=== PATIENT | female | born 1960 | race Caucasian/White ===

== ENCOUNTER 2016-09-18 11:05 | Inpatient (IN) | payer OTHER ==
[~2016-09-18] VITALS: Ht 162.6 cm; Wt 54.4 kg
--- NOTE | 2016-09-18 11:10 | ED DYSPNEA/ASTHMA COMPLAINT ---
History of Present Illness General Chief Complaint: Dyspnea (COPD, CHF, Other) Stated Complaint: sob Source: patient, old records, EMS Exam Limitations: no limitations Vital Signs & Intake/Output Vital Signs & Intake/Output Vital Signs Date Time Temp Pulse Resp B/P Pulse O2 O2 Flow FiO2 Ox Delivery Rate 09/19 0817 93 Nasal 2.0L Cannula 09/19 0800 96 Nasal 2.0L Cannula 09/19 0622 97.6 91 20 120/78 97 Room Air 09/19 0051 80 09/19 0000 94 Nasal 2.0L Cannula 09/18 2252 98.1 113 22 122/80 94 Nasal Cannula 09/18 2039 Nasal 3.0L Cannula 09/18 1600 Nasal 3.0L Cannula 09/18 1454 95 Nasal 3.0L Cannula 09/18 1427 97.9 109 22 102/60 95 Nasal 3.0L Cannula 09/18 1307 98.0 109 20 106/59 97 Nasal 3.0L Cannula 09/18 1250 107 20 88 Room Air 09/18 1152 98 Aerosol Mask 09/18 1136 104 24 129/69 98 Aerosol Mask 09/18 1118 98 Aerosol 4.0L Mask 09/18 1105 98.9 103 34 152/72 93 Room Air ED Intake and Output 09/19 0000 09/18 1200 Intake Total 1260 0 Output Total Balance 1260 0 Intake, IV 20 Intake, Oral 1240 0 Patient 120 lb Weight Allergies Coded Allergies: Penicillins (CHILDHOOD ALLERGY 09/18/16) Reconcile Medications Albuterol Sulfate (Proair Hfa) 90 MCG HFA.AER.AD 2 PUF INH Q4-6 PRN PRN SHORTNESS OF BREATH (Reported) Fluticasone/Salmeterol (Advair 250-50 Diskus) 250 MCG-50 MCG/DOSE BLST.W.DEV 1 PUF INH BID BREATHING PROBLEMS (Reported) Tiotropium [place] (Spiriva) 18 MCG CAP.W.DEV 1 CAP INH DAILY BREATHING PROBLEMS (Reported) Triage Nurses Notes Reviewed? yes Onset: Abrupt Duration: day(s): (FEW), worse persistent since (THIS MORNING) Timing: multiple episodes today Severity: severe Activities at Onset: none Associated Symptoms: cough, chest pain, weakness HPI: This is a 56-year-old female with history of COPD who presents via EMS from home for chief complaint of respiratory distress. She states been sick for the past one week but yesterday suddenly got much worse. This morning she states she was able to get out of bed but then couldn't breathe. EMS found her tripoding using albuterol nebulizer treatment. On route she was given 2 additional albuterol treatments, 2 minute grams of magnesium as well as 125 slightly Medrol IV. Patient presents much improved per EMS. She denies any chest pain but states she has had some white sputum. No history of coronary disease or congestive heart failure in the past. She is still smoking 1-1/2 packs per day. She does not use any home oxygen therapy. Her supply chain intern is Dr. Godfrey. Patient found to be in moderate respiratory distress, tachypneic with bilateral wheezing. She is pursed lipped breathing. Past History Medical History Any Pertinent Medical History? see below for history Respiratory: COPD History of MRSA: No History of VRE: No History of CDIFF: No Influenza Vaccine: 03/04/12 Surgical History Surgical History: non-contributory Psychosocial History Who do you live with Patient/Self Services at Home None What is your primary language Moroccan Daily Tobacco Use Amount/Type: => 5 Cigarettes daily (1.5 PPD) ETOH Use: occasional use Illicit Drug Use: denies illicit drug use Family History Family History, If Any: MOTHER Family hx of lung cancer Hx Contributory? No Review of Systems Review of Systems Constitutional: Reports: chills, fever. EENTM: Reports: no symptoms. Respiratory: Reports: cough, short of breath, sputum production. Cardiovascular: Reports: chest pain. GI: Denies: abdominal pain. Genitourinary: Reports: no symptoms. Musculoskeletal: Reports: no symptoms. Skin: Reports: no symptoms. Neurological/Psychological: Reports: no symptoms. Hematologic/Endocrine: Denies: bruising, bleeding, polyuria, polydipsia. Immunologic/Allergic: Denies: splenectomy. All Other Systems: Reviewed and Negative Physical Exam Physical Exam General Appearance: alert, awake, anxious, cachetic, moderate distress, intoxicated, thin Head: atraumatic, normal appearance Eyes: Bilateral: normal appearance, PERRL, EOMI. Ears, Nose, Throat: normal pharynx, hearing grossly normal Neck: normal inspection, supple, full range of motion Respiratory: accessory muscle use, wheezing, respiratory distress Cardiovascular: tachycardia Peripheral Pulses: 2+ radial (R), 2+ radial (L) Gastrointestinal: soft, non-tender Neurologic/Psych: awake, alert, oriented x 3 Skin: intact, normal color, warm/dry Core Measures ACS in differential dx? No Severe Sepsis Present: No Septic Shock Present: No Progress Differential Diagnosis: COPD, pulmonary embolism, pneumothorax Plan of Care: Orders Procedure Date/time Status XRY-CHEST XRAY, PA AND LATERAL 09/19 0800 Active EKG 09/19 0800 Active CBC WITHOUT DIFFERENTIAL 09/19 0500 Active BASIC ELECTROLYTES PLUS BUN&CR 09/19 0500 Complete Regular Diet 09/18 D Active RT: Evaluation 09/18 2039 Active THERAPIST ORDERS 09/18 2000 Complete RAPID VIRAL INFLUENZA A 09/18 1900 Complete OXYGEN SETUP (GEN) 09/18 1600 Complete Pathway - chart 09/18 1521 Active Vital Signs 09/18 1453 Active Teach/Educate 09/18 1453 Active Pain Treatment and Response 09/18 1453 Active Nutritional Intake, Monitor 09/18 1453 Active Isolation 09/18 1453 Active Intake & Output 09/18 1453 Active Patient Care Conference 09/18 1453 Active Activity/Ambulation 09/18 1453 Active Weight 09/18 1334 Complete Pathway - chart 09/18 1316 Active Code Status 09/18 1316 Active Patient Data 09/18 1311 Active Admit to inpatient 09/18 1300 Active Vital Signs 09/18 1300 Complete Code Status 09/18 1300 Complete ARTERIAL BLOOD GAS (GEN) 09/18 1209 Complete B-TYPE NATRIURETIC PEP (BNP) 09/18 1155 Complete Intake & Output 09/18 1147 Active Telemetry/Strawhat Inspector And Packer 09/18 1109 Complete PARTIAL THROMBOPLASTIN TIME 09/18 1109 Complete PROTHROMBIN TIME 09/18 1109 Complete RT ED ORDERS 09/18 1108 Complete LOWER RESPIRATORY CULTURE 09/18 1108 Active BLOOD CULTURE 09/18 1108 Active TROPONIN LEVEL 09/18 1108 Complete LACTIC ACID 09/18 1108 Complete COMPREHENSIVE METABOLIC PANEL 09/18 1108 Complete CBC WITHOUT DIFFERENTIAL 09/18 1108 Complete EKG 09/18 1108 Active OXYGEN SETUP CHG 09/18 UNK Complete AEROSOL CHG 09/18 UNK Complete OXYGEN 09/18 UNK Complete OXYGEN TRANSPORT 09/18 UNK Complete TRC EVALUATION (GEN) 09/18 UNK Complete THERAPIST ORDERS 09/18 UNK Complete House Staff 09/18 UNK Active VTE Mechanical Prophylaxis 09/18 UNK Active Vital Signs 09/18 UNK Active Current Medications Sig/Vicki Start time Last Medication Dose Stop Time Status Admin Prednisone 60 MG DAILY 09/19 1000 CAN Acetaminophen 650 MG Q6P PRN 09/18 1530 AC (Tylenol) Albuterol Sulfate 2 PUF Q4-6 PRN PRN 09/18 1430 AC (Ventolin) Laboratory Tests 09/19/16 0705: Anion Gap 9, Estimated GFR > 60, BUN/Creatinine Ratio 21.7, CBC w Diff Pending, WBC Pending, RBC Pending, Hgb Pending, Hct Pending, MCV Pending, MCH Pending, RDW Pending, Plt Count Pending, MPV Pending, Gran % Pending, Lymphocytes % Pending, Monocytes % Pending, Eosinophils % Pending, Basophils % Pending, Absolute Granulocytes Pending, Absolute Lymphocytes Pending, Absolute Monocytes Pending, Absolute Eosinophils Pending, Absolute Basophils Pending, PUBS MCHC Pending 09/18/16 1408: Lactic Acid Cancelled 09/18/16 1200: pH 7.34 L, pCO2 55 H, pO2 213 H, HCO3 30 H, ABG O2 Sat (Measured) 99.0, P-50 (Temp Corrected) YES, Carboxyhemoglobin 6.8 *H, O2 Concentration % 7L, Temperature 96.4 L, O2 Delivery Method NEBULIZER, Phlebotomy Draw Site LEFT RADIAL 09/18/16 1155: Anion Gap 13, Estimated GFR > 60, BUN/Creatinine Ratio 15.0, Glucose 167 H, Lactic Acid 1.7, Calcium 9.6, Total Bilirubin 0.4, AST 35, ALT 39, Alkaline Phosphatase 58, Troponin I 0.01, Bse-O-Nczfutepffe Pept 139 H, Total Protein 7.1, Albumin 4.3, Globulin 2.8, Albumin/Globulin Ratio 1.5, PT 9.7, INR 0.92, APTT 31, CBC w Diff NO MAN DIFF REQ, RBC 4.67, MCV 96.9, MCH 33.1 H, RDW 14.6 H, MPV 8.6, Gran % 77.4 H, Lymphocytes % 16.2 L, Monocytes % 4.3, Eosinophils % 1.9, Basophils % 0.2, Absolute Granulocytes 8.8 H, Absolute Lymphocytes 1.8, Absolute Monocytes 0.5, Absolute Eosinophils 0.2, Absolute Basophils 0, PUBS MCHC 34.2 09/18/16 1109: Zuu-Q-Gdqjfgdwngu Pept Cancelled Microbiology 09/18 2114 NASOPHARYN: Influenza Virus A & B Rapid Smear - COMP 09/18 1425 LOWER RESP: Respiratory Culture - RES 09/18 1425 LOWER RESP: Gram Stain - RES 09/18 1205 BLOOD: Blood Culture - RECD 09/18 1155 BLOOD: Blood Culture - RECD Diagnostic Imaging: Viewed by Me: Radiology Read. Discussed w/RAD: Radiology Read. Initial ED EKG: LBBB, ENLARGED P WAVES Rhythm Strip: sinus tachycardia Comments: PATIENT: KENRICK LYN PRESENT AGE: 56 PATIENT ACCOUNT NO: [id number] : 58 LOCATION: [facility] ORDERING PHYSICIAN: MATILDE MCFARLAND MD SERVICE DATE: 09/18/16 EXAM TYPE: RAD - XRY-PORTABLE CHEST XRAY EXAMINATION: XR PORTABLE CHEST CLINICAL INFORMATION: Evaluate for pneumonia. Respiratory distress. COMPARISON: Chest x-ray most recent prior dated 08/18/2013 TECHNIQUE: Portable AP view of the chest was obtained. FINDINGS: Cardia mediastinal silhouette is within normal limits. Rounded nodular opacity left midlung represents a stable finding measuring approximately 1.8 cm. Minor interval increase in the patchy opacity right lateral base. Prominent bilateral nipple shadows noted again. IMPRESSION: 1. Stable lung nodule left midlung. 2. Subtle prominence patchy opacity right lateral base. Findings may represent evolving infiltrate or atelectasis. Repeat chest x-ray after treatment recommended. DICTATED BY: FRANK HEMPHILL MD DATE/TIME DICTATED:09/18/161158 LIGHTER CAPTAIN:DORA DATE/TIME TRANSCRIBED:09/18/161158 CONFIDENTIAL, DO NOT COPY WITHOUT APPROPRIATE AUTHORIZATION. <Electronically signed in Other Vendor System> SIGNED BY: FRANK HEMPHILL MD 09/18/16 120 Departure Departure Time of Disposition: 1305 Disposition: STILL A PATIENT Condition: Stable Clinical Impression Primary Impression: Obstructive chronic bronchitis with exacerbation Secondary Impressions: Pneumonia, Respiratory distress Referrals: KHARI HERNANDEZ (PCP/Family) Departure Forms: Customer Survey General Discharge Information Admission Note Spoke With: LIZ MD,KANWARDEEP S. Documentation of Exam: Documentation of any treatments & extenuating circumstances including Concerns Regarding Discharge (functional status, medication knowledge or non-compliance, living conditions, etc.) that warrant an admission rather than observation: [TRC /NEBS, IV SOLUMEDROL, IV ABX, F/U CULTURES, PULMONARY CONSULTATION, MONITOR I/O] Critical Care Note Critical Care Note Critical Care Time: 75-104 min
--- NOTE | 2016-09-18 11:15 | NUR ---
PT BIBA FOR SOB X 45 MINUTES. PER EMS PT CALLED WHEN SHE FELT EXTREMELY SOB. PT STATES SHE HAS BEEN SOB ON AND OFF FOR A WEEK BUT TODAY IT WAS VERY SEVERE. DELIVERY AIDE STATES ON ARRIVAL PT HAD VERY LABORED BREATHING WITH RR OF 40 A MINUTE AND A SAT OF 85-89% ON A NRB. 18G IV WAS ESTABLISHED BY EMS ENROUTE. PT WAS GIVEN 2 ALBUTEROL TREATMENTS, 125 MG OF IV SOLUMEDROL, AND 2G OF IV MAGNESIUM. PT REPORTS RELIEF AFTER TX BUT STILL PRESENTS WITH LABORED BREATHING ON ARRIVAL.
--- NOTE | 2016-09-18 11:47 | NUR ---
PT STATES THAT SHE FEELS BETTER. CONTINUOUS NEB TX IN PROCESS
--- NOTE | 2016-09-18 12:05 | RADIOLOGY REPORT ---
EXAMINATION: XR PORTABLE CHEST CLINICAL INFORMATION: Evaluate for pneumonia. Respiratory distress. COMPARISON: Chest x-ray most recent prior dated 08/18/2013 TECHNIQUE: Portable AP view of the chest was obtained. FINDINGS: Cardia mediastinal silhouette is within normal limits. Rounded nodular opacity left midlung represents a stable finding measuring approximately 1.8 cm. Minor interval increase in the patchy opacity right lateral base. Prominent bilateral nipple shadows noted again. IMPRESSION: 1. Stable lung nodule left midlung. 2. Subtle prominence patchy opacity right lateral base. Findings may represent evolving infiltrate or atelectasis. Repeat chest x-ray after treatment recommended.
[2016-09-18 12:15] LABS: ABSOLUTE BASOPHIL COUNT 0 /CUMM (0.0-0.2); ABSOLUTE EOSINOPHIL COUNT 0.2 /CUMM (0.0-0.7); ABSOLUTE GRANULOCYTE CT 8.8 /CUMM (1.4-6.5); ABSOLUTE LYMPH COUNT 1.8 /CUMM (1.2-3.4); ABSOLUTE MONOCYTE COUNT 0.5 /CUMM (0.10-0.60); BASOPHIL % 0.2 % (0.0-2.0); EOSINOPHIL % 1.9 % (0-5); GRANULOCYTE % 77.4 % (42.2-75.2); HEMATOCRIT 45.3 % (37-47); MEAN CORPUSCULAR HGB 33.1 PG (27.0-31.0); MEAN CORPUSCULAR HGB CONC 34.2 G/DL (33.0-37.0); MEAN CORPUSCULAR VOLUME 96.9 FL (81.0-99.0); MEAN PLATELET VOLUME 8.6 FL (7.4-10.4); PLATELET COUNT 251 /CUMM (130-400); RBC DISTRIBUTION WIDTH 14.6 % (11.5-14.5); RED BLOOD CELL CT 4.67 /CUMM (4.20-5.40); WHITE BLOOD CELL COUNT 11.4 /CUMM (4.8-10.8)
[2016-09-18 12:23] LABS: PT 9.7 SEC (9.4-12.5); PTT 31 SEC (25-37)
[2016-09-18] MEDS ORDERED: ADVAIR 250-501 EACH INH (12:38)
[2016-09-18] MEDS ORDERED: PROAIR HFA8.5 GM INH (12:38)
[2016-09-18] MEDS ORDERED: SPIRIVA18 MCG INH (12:38)
--- NOTE | 2016-09-18 13:00 | NUR ---
CONTINUOUS NEB TREATMENT FINISHED. SPO2 88% ON RA. BREATHING NONLABORED. PLACED ON 2LNC. NOW 92-93%.
--- NOTE | 2016-09-18 13:16 | History & Physical ---
HIRO ASTUDILLO MD 09/18/16 1235: General Information and HPI MD Statement: I have seen and personally examined KENRICK LYN and documented this H&P. The patient is a 56 year old F who presented with a patient stated chief complaint of [shortness of breath.]. Source of Information: patient History of Present Illness: This is a 56-year-old female with a past medical history of COPD not on home oxygen, Spiriva, Symbicort and albuterol, normally follows up with Dr. Elaine who presented to [facility] persistent shortness of breath and mild wheezing. Apparently as per the EMS note the patient was tripoding and was saturating to 72% when this saw her. The patient was given 125 mg of Solu-Medrol 2 mg of magnesium and 2 rounds of albuterol just restore her saturation above 92%. In the ER the patient received continuous nebulization and did not require any other intervention. The patient stated that she has been feeling lethargic and persistent shortness of breath for the last 1 week which has worsened in the last 48 hours. She has been coming up with whitish sputum, denies any fever, chills, shakes, sick contacts on any recent travels. The patient has a cat at home for the last 5 years. No new exposure to pets Patient is an every day smoker and smokes 1 pack a day for the last 30 years. Allergies/Medications Allergies: Coded Allergies: Penicillins (CHILDHOOD ALLERGY 09/18/16) Home Med list Albuterol Sulfate (Proair Hfa) 90 MCG HFA.AER.AD 2 PUF INH Q4-6 PRN PRN SHORTNESS OF BREATH (Reported) Fluticasone/Salmeterol (Advair 250-50 Diskus) 250 MCG-50 MCG/DOSE BLST.W.DEV 1 PUF INH BID BREATHING PROBLEMS (Reported) Tiotropium [place] (Spiriva) 18 MCG CAP.W.DEV 1 CAP INH DAILY BREATHING PROBLEMS (Reported) Past History Medical History Respiratory: COPD History of MRSA: No History of VRE: No History of CDIFF: No Influenza Vaccine: 03/04/12 Surgical History Surgical History: none Past Family/Social History Family History Relations & Conditions if any MOTHER Family hx of lung cancer MOTHER Relation not specified for: FH: hypertension Psychosocial History Services at Home: None Review of Systems Review of Systems Constitutional: Reports: see HPI. Cardiovascular: Reports: see HPI, chest pain. Respiratory: Reports: cough. Denies: hemoptysis, orthopnea, short of breath. GI: Denies: abdominal pain, bloating, constipation, diarrhea. Genitourinary: Denies: dysuria, frequency, hematuria, hesitation. Musculoskeletal: Reports: see HPI. Denies: back pain. Skin: Denies: cysts, change in skin color, change in hair/nails. Neurological/Psychological: Reports: see HPI. Exam & Diagnostic Data Last 24 Hrs of Vital Signs/I&O Vital Signs Date Time Temp Pulse Resp B/P Pulse O2 O2 Flow FiO2 Ox Delivery Rate 09/18 1307 98.0 109 20 106/59 97 Nasal 3.0L Cannula 09/18 1250 107 20 88 Room Air 09/18 1152 98 Aerosol Mask 09/18 1136 104 24 129/69 98 Aerosol Mask 09/18 1118 98 Aerosol 4.0L Mask 09/18 1105 98.9 103 34 152/72 93 Room Air Intake & Output 09/18 1600 09/18 0800 09/18 0000 Intake Total 0 Output Total Balance 0 Intake, Oral 0 Patient 120 lb Weight Physical Exam General Appearance Alert, Oriented X3, Cooperative Skin No Rashes, No Breakdown HEENT Atraumatic, PERRLA Cardiovascular Normal S1, Normal S2 Lungs Clear to Auscultation, bilateral decreased airway entry with persistent wheezing Abdomen Normal Bowel Sounds, Soft, No Tenderness Assessment/Plan Assessment: This is a 56-year-old female with non-home oxygen dependent COPD every day smoker presented to [facility] with persistent shortness of breath and wheezing. The patient received 2 rounds of IV magnesium, 125 mg of Solu-Medrol and 2 rounds of albuterol Vitals at the time of admission showed Blood pressure 106/90, 109, 20,97 % on 3L O2 Labs showed WBC of 11,000, normal hemoglobin and hematocrit, sodium 140, potassium of 4.3 Chest x-ray: . Stable lung nodule left midlung. 2. Subtle prominence patchy opacity right lateral base. Findings may represent evolving infiltrate or atelectasis. Repeat chest x-ray after treatment recommended. EKG showed left bundle branch block Assessment 1. 1. COPD exacerbation 2. Every day smoker 3. Tachycardia and hypoxemia secondary to COPD exacerbation 4. History of left lung nodule is stable 5.LBBB on EKG which seems old when compared to previous EKG Plan Admit to general medicine floor Oxygen supplementation Nebulizer [id number] IV Solu-Medrol 40 mg every 8 Sputum culture if possible By mouth azithromycin for anti-inflammatory effects DVT PPX s/q lovenox Hold opoids pain control with tylenol only As Ranked By This Provider Problem List: 1. Respiratory distress 2. Respiratory disease Core Measures/Miscellaneous Acute Coronary Syndrome ACS Diagnosis: No Cerebrovascular Accident CVA/TIA Diagnosis: No Congestive Heart Failure CHF Diagnosis: No Venous Thromboembolism VTE Risk Factors: Acute medical illness, Age > 40 No [facility] VTE prophylaxis d/t: VTE low risk, No contraindications No VTE Pharm Prophylaxis d/t: No contraindications VTE Diagnosis: No VTE Type: NONE VTE Confirmed by (Test): NONE Severe Sepsis Severe Sepsis Present: No Septic Shock Septic Shock Present: No Miscellaneous Documentation Attending Case Discussed With: AGUSTO ANDERSEN,CHRISTOPHER Shrestha Primary Care Physician: KHARI HERNANDEZ Patient sees these Specialists DR ELAINE Level of Patient Care: General Medicine RONEL BOATENG 09/18/16 1522: Attending MD Review Statement Attending Statement Attending MD Statement: examined this patient, discuss w/resident/PA/PENCIL SORTER, agreed w/resident/PA/PENCIL SORTER, discussed with family, reviewed EMR data (avail), discussed with nursing, discussed with case mgmt, reviewed images, amended to note Attending Assessment/Plan: 56 o/f with pmh of copd followed by Dr Elaine as o/p comes with copd exacerbation , start i/v steorids, abx, TRC, cont nebs, consult Dr Elaine Pulmonary. gi/dvt prophyalxis full code.
--- NOTE | 2016-09-18 13:17 | NUR ---
PT PLACED ON 3LNC. SPO2 NOW 97%. PT STATES SHE FEELS MUCH BETTER
--- NOTE | 2016-09-18 14:06 | NUR ---
PT ADMITTED TO ROOM [phone]
[2016-09-18 14:27] VITALS: BP 102/60
--- NOTE | 2016-09-18 18:30 | Cons- Pulmonary ---
General Information and HPI Consulting Request Date of Consult: 09/18/16 Requested By: med team History of Present Illness: This is a 56-year-old female with a past medical history of COPD not on home oxygen, Spiriva, Symbicort and albuterol, normally follows up with Dr. Godfrey who presented to [facility] persistent shortness of breath and mild wheezing. Apparently as per the EMS note the patient was tripoding and was saturating to 72% when this saw her. The patient was given 125 mg of Solu-Medrol 2 mg of magnesium and 2 rounds of albuterol just restore her saturation above 92%. In the ER the patient received continuous nebulization and did not require any other intervention. The patient stated that she has been feeling lethargic and persistent shortness of breath for the last 1 week which has worsened in the last 48 hours. She has been coming up with whitish sputum, denies any fever, chills, shakes, sick contacts on any recent travels. The patient has a cat at home for the last 5 years. No new exposure to pets Patient is an every day smoker and smokes 1 pack a day for the last 30 years. SHe does have history of sig etoh abuse and is drinking rather heavily in the past few months and missing a lot of time at work Review of Systems Constitutional: Reports: see HPI. Cardiovascular: Reports: see HPI, chest pain. Respiratory: Reports: cough. Denies: hemoptysis, orthopnea, short of breath. GI: Denies: abdominal pain, bloating, constipation, diarrhea. Genitourinary: Denies: dysuria, frequency, hematuria, hesitation. Musculoskeletal: Reports: see HPI. Denies: back pain. Skin: Denies: cysts, change in skin color, change in hair/nails. Neurological/Psychological: Reports: see HPI. Allergies/Medications Allergies: Coded Allergies: Penicillins (CHILDHOOD ALLERGY 09/18/16) Home Med List: Albuterol Sulfate (Proair Hfa) 90 MCG HFA.AER.AD 2 PUF INH Q4-6 PRN PRN SHORTNESS OF BREATH (Reported) Fluticasone/Salmeterol (Advair 250-50 Diskus) 250 MCG-50 MCG/DOSE BLST.W.DEV 1 PUF INH BID BREATHING PROBLEMS (Reported) Tiotropium [place] (Spiriva) 18 MCG CAP.W.DEV 1 CAP INH DAILY BREATHING PROBLEMS (Reported) Review of Systems Review of Systems Constitutional: Reports: see HPI. 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 Home Services at Home: None Smoking Status: Current Everyday Smoker Exam & Diagnostic Data Last 24 Hrs of Vital Signs/I&O Vital Signs Date Time Temp Pulse Resp B/P Pulse O2 O2 Flow FiO2 Ox Delivery Rate 09/18 1600 Nasal 3.0L Cannula 09/18 1454 95 Nasal 3.0L Cannula 09/18 1427 97.9 109 22 102/60 95 Nasal 3.0L Cannula 09/18 1307 98.0 109 20 106/59 97 Nasal 3.0L Cannula 09/18 1250 107 20 88 Room Air 09/18 1152 98 Aerosol Mask 09/18 1136 104 24 129/69 98 Aerosol Mask 09/18 1118 98 Aerosol 4.0L Mask 09/18 1105 98.9 103 34 152/72 93 Room Air Intake & Output 09/18 1600 09/18 0800 09/18 0000 Intake Total 240 Output Total Balance 240 Intake, Oral 240 Patient 120 lb Weight Last 48 Hrs of Labs/Tim: Laboratory Tests 09/18/16 1408: Lactic Acid Cancelled 09/18/16 1200: pH 7.34 L, pCO2 55 H, pO2 213 H, HCO3 30 H, ABG O2 Sat (Measured) 99.0, P-50 (Temp Corrected) YES, Carboxyhemoglobin 6.8 *H, O2 Concentration % 7L, Temperature 96.4 L, O2 Delivery Method NEBULIZER, Phlebotomy Draw Site LEFT RADIAL 09/18/16 1155: Anion Gap 13, Estimated GFR > 60, BUN/Creatinine Ratio 15.0, Glucose 167 H, Lactic Acid 1.7, Calcium 9.6, Total Bilirubin 0.4, AST 35, ALT 39, Alkaline Phosphatase 58, Troponin I 0.01, Rig-E-Ueqawwnaxkw Pept 139 H, Total Protein 7.1, Albumin 4.3, Globulin 2.8, Albumin/Globulin Ratio 1.5, PT 9.7, INR 0.92, APTT 31, CBC w Diff NO MAN DIFF REQ, RBC 4.67, MCV 96.9, MCH 33.1 H, RDW 14.6 H, MPV 8.6, Gran % 77.4 H, Lymphocytes % 16.2 L, Monocytes % 4.3, Eosinophils % 1.9, Basophils % 0.2, Absolute Granulocytes 8.8 H, Absolute Lymphocytes 1.8, Absolute Monocytes 0.5, Absolute Eosinophils 0.2, Absolute Basophils 0, PUBS MCHC 34.2 09/18/16 1109: Src-P-Mnqogcprrgh Pept Cancelled Assessment/Plan Impression/Plan: Chest x-ray: . Stable lung nodule left midlung. 2. Subtle prominence patchy opacity right lateral base. Findings may represent evolving infiltrate or atelectasis. Repeat chest x-ray after treatment recommended. EKG showed left bundle branch block Physical Exam General Appearance Alert, Oriented X3, Cooperative, mild tremors Skin No Rashes, No Breakdown HEENT Atraumatic, PERRLA Cardiovascular Normal S1, Normal S2 Lungs bilateral decreased airway entry with persistent wheezing Abdomen Normal Bowel Sounds, Soft, No Tenderness no sig edema IMPRESSION This is a lady with significant COPD, unfortunately continues to smoke, significant alcohol use, FEV1 less than 0.7, previous left lung opacity which has been present for many years probably benign, a subtle opacity seen in the chest x-ray which needs to be followed now comes in with * Acute COPD exacerbation with cough wheezing with sputum production with sputum Gram stain showing moderate gram-positive cocci. * Acute hypercarbic respiratory failure related to COPD exacerbation with high carboxyhemoglobin from significant smoking * Previous history of recurrent influenza which needs to be ruled out Significant smoking with very end-stage lung disease Ongoing alcohol use * Left bundle branch block which needs to be evaluated with previous EKGs * Ongoing smoking * Left lung nodule which appears to be present for many years probably hamartoma with CAT scan of the chest done in 2007 with negative PET scan * Chest x-ray abnormality rule out pneumonia versus any other malignancy. RECOMMENDATION * Continue intravenous steroids to the wheezing stops and switch her to by mouth prednisone 60 * Continue ceftriaxone and azithromycin * Await sputum culture * Flu swab * Banana bag * Watch for DTs * Check previous EKG and if she did not have any left bundle branch block and she would need a cardiology evaluation and a repeat echocardiogram * Smoking cessation and alcohol cessation counseling done extensively * We will follow patient closely * Repeat EKG and a chest x-ray tomorrow Consult Acknowledgment - Thank you for your consult request.
[2016-09-18 22:52] VITALS: BP 122/80
[2016-09-19 06:22] VITALS: BP 120/78
[2016-09-19 08:32] LABS: ABSOLUTE BASOPHIL COUNT 0.2 /CUMM (0.0-0.2); ABSOLUTE EOSINOPHIL COUNT 0 /CUMM (0.0-0.7); ABSOLUTE GRANULOCYTE CT 13.2 /CUMM (1.4-6.5); ABSOLUTE LYMPH COUNT 0.7 /CUMM (1.2-3.4); ABSOLUTE MONOCYTE COUNT 1.7 /CUMM (0.10-0.60); BASOPHIL % 1.1 % (0.0-2.0); EOSINOPHIL % 0 % (0-5); HEMATOCRIT 46.3 % (37-47); MEAN CORPUSCULAR HGB 32.4 PG (27.0-31.0); MEAN CORPUSCULAR HGB CONC 32.9 G/DL (33.0-37.0); MEAN CORPUSCULAR VOLUME 98.6 FL (81.0-99.0); MEAN PLATELET VOLUME 10.6 FL (7.4-10.4); PLATELET COUNT 238 /CUMM (130-400); RED BLOOD CELL CT 4.69 /CUMM (4.20-5.40); WHITE BLOOD CELL COUNT 15.8 /CUMM (4.8-10.8)
--- NOTE | 2016-09-19 09:21 | PN- Pulmonary ---
Subjective HPI/Critical Care Issues: Doing better afebrile Says that she is improving Flu neg Objective Current Medications: Current Medications Sig/Vicki Start time Last Medication Dose Route Stop Time Status Admin Acetaminophen 650 MG Q6P PRN 09/18 1530 AC PO Albuterol Sulfate 3 ML EVERY 4 HRS/AWAKE 09/19 0800 AC 09/18 INH 2000 Albuterol Sulfate 2 PUF Q4-6 PRN PRN 09/18 1430 AC INH Albuterol Sulfate 18 ML ONCE ONE 09/18 1115 DC 09/18 INH 09/18 1116 1117 Azithromycin 250 MG DAILY 09/19 1000 AC PO Azithromycin 500 MG ONCE ONE 09/18 1115 DC 09/18 Sodium Chloride 250 ML IV 09/18 1214 1225 Budesonide/ 2 PUF BID 09/18 2200 AC 09/18 Formoterol Fumarate INH 2054 Ceftazidime 0 .STK-MED ONE 09/18 1222 DC .ROUTE Ceftazidime 1,000 MG ONCE ONE 09/18 1115 DC 09/18 IV 09/18 1116 1220 Ceftriaxone Sodium 1,000 MG DAILY 09/19 1000 AC IV Enoxaparin Sodium 40 MG DAILY 09/19 1000 DC SC Enoxaparin Sodium 40 MG DAILY 09/18 1400 AC 09/18 SC 2051 Ipratropium [place] 2.5 ML ONCE ONE 09/18 1115 DC 09/18 INH 09/18 1116 1117 Methylprednisolone 40 MG Q8 09/19 0710 AC 09/19 IV 0759 Methylprednisolone 40 MG Q8 09/18 2200 DC 09/18 IV 09/19 0000 2052 Prednisone 60 MG DAILY 09/19 1000 CAN PO Tiotropium [place] 1 PUF DAILY 09/19 1000 AC INH Vital Signs & I&O Last 24 Hrs of Vitals and I&O: Vital Signs Date Time Temp Pulse Resp B/P Pulse O2 O2 Flow FiO2 Ox Delivery Rate 09/19 0817 93 Nasal 2.0L Cannula 09/19 0622 97.6 91 20 120/78 97 Room Air 09/19 0051 80 09/19 0000 94 Nasal 2.0L Cannula 09/18 2252 98.1 113 22 122/80 94 Nasal Cannula 09/18 2039 Nasal 3.0L Cannula 09/18 1600 Nasal 3.0L Cannula 09/18 1454 95 Nasal 3.0L Cannula 09/18 1427 97.9 109 22 102/60 95 Nasal 3.0L Cannula 09/18 1307 98.0 109 20 106/59 97 Nasal 3.0L Cannula 09/18 1250 107 20 88 Room Air 09/18 1152 98 Aerosol Mask 09/18 1136 104 24 129/69 98 Aerosol Mask 09/18 1118 98 Aerosol 4.0L Mask 09/18 1105 98.9 103 34 152/72 93 Room Air Intake & Output 09/19 1600 09/19 0800 09/19 0000 Intake Total 1020 Output Total Balance 1020 Intake, IV 20 Intake, Oral 1000 Impression/Plan Impression/Plan Impression/Plan: Chest x-ray: . Stable lung nodule left midlung. 2. Subtle prominence patchy opacity right lateral base. Findings may represent evolving infiltrate or atelectasis. Repeat chest x-ray after treatment recommended. EKG showed left bundle branch block Physical Exam General Appearance Alert, Oriented X3, Cooperative, mild tremors Skin No Rashes, No Breakdown HEENT Atraumatic, PERRLA Cardiovascular Normal S1, Normal S2 Lungs bilateral decreased airway entry with persistent wheezing Abdomen Normal Bowel Sounds, Soft, No Tenderness no sig edema IMPRESSION This is a lady with significant COPD, unfortunately continues to smoke, significant alcohol use, FEV1 less than 0.7, previous left lung opacity which has been present for many years probably benign, a subtle opacity seen in the chest x-ray which needs to be followed now comes in with * Acute COPD exacerbation with cough wheezing with sputum production with sputum Gram stain showing prelim mixed lukas, Influenza neg * REsolving Acute hypercarbic respiratory failure related to COPD exacerbation with high carboxyhemoglobin from significant smoking * Significant smoking with very end-stage lung disease * Ongoing alcohol use * Left bundle branch block which needs to be evaluated with previous EKGs * Ongoing smoking * Left lung nodule which appears to be present for many years probably hamartoma with CAT scan of the chest done in 2007 with negative PET scan * Chest x-ray abnormality rule out pneumonia versus any other malignancy. RECOMMENDATION * Switch to prednisone 60 * Continue ceftriaxone and azithromycin, and change to po ceftin in am * Await sputum culture final ID * Watch for DTs * Check previous EKG and if she did not have any left bundle branch block and she would need a cardiology evaluation and a repeat echocardiogram * Smoking cessation and alcohol cessation counseling done extensively * We will follow patient closely * Repeat EKG and a chest x-ray Increase activity
[2016-09-19 10:42] LABS: GRANULOCYTE % 83.5 % (42.2-75.2)
--- NOTE | 2016-09-19 12:20 | RADIOLOGY REPORT ---
EXAMINATION: XR CHEST CLINICAL INFORMATION: COPD. Hypoxia. Shortness of breath. COMPARISON: Chest x-ray dated 09/18/2016, 08/18/2013, 06/25/2007. TECHNIQUE: 2 views of the chest were obtained. FINDINGS: The cardiomediastinal silhouette is within normal limits in size. Lungs bilaterally are hyperinflated with hyperlucency in the upper lungs and slight crowding of bronchovascular lung markings in the mid and lower lung seen, consistent with obstructive lung disease. There is a stable 1.9 x 1.8 cm round and smoothly marginated mass in the left upper lobe inferiorly, unchanged dating back to 08/18/2013 and slightly larger compared to 1.5 x 1.4 cm on 06/25/2007. This is most consistent with a benign nodule given the long-term stability of findings. No new focal lung nodule or mass is seen. No focal consolidation or pleural effusion is seen. Minimal pleural thickening is seen in the right ankle. Osteopenia is seen. IMPRESSION: 1. Obstructive lung disease with no focal acute process noted. 2. Stable well-circumscribed left upper lobe mass, unchanged dating back to 2013 and minimally larger compared to 2007, most consistent with a benign etiology.
--- NOTE | 2016-09-19 13:36 | PN- Housestaff ---
LEROY ANDERSEN,FREDY 09/19/16 1336: Subjective Follow-up For: COPD exacerbation Subjective: Saw Pt at bedside this AM. She stated she felt better when compared to yesterday but shared that she still had persistent SOB with the most menial of tasks such as going to the bathroom. No pain no acute overnight events. Will switch to PO regimen with plan to D/C in AM. Review of Systems Constitutional: Denies: chills, fever, weakness. EENTM: Reports: no symptoms. Cardiovascular: Denies: chest pain, palpitations. Respiratory: Reports: cough, short of breath. Denies: sputum production. Gastrointestinal: Reports: no symptoms. Genitourinary: Reports: no symptoms. Musculoskeletal: Reports: no symptoms. Objective Last 24 Hrs of Vital Signs/I&O Vital Signs Date Time Temp Pulse Resp B/P Pulse O2 O2 Flow FiO2 Ox Delivery Rate 09/19 1913 94 Nasal 2.0L Cannula 09/19 1600 Nasal 1.5L Cannula 09/19 1408 97.9 93 20 118/62 94 Room Air 09/19 0817 93 Nasal 2.0L Cannula 09/19 0800 96 Nasal 2.0L Cannula 09/19 0622 97.6 91 20 120/78 97 Room Air 09/19 0051 80 04 0000 94 Nasal 2.0L Cannula 09/18 2252 98.1 113 22 122/80 94 Nasal Cannula Intake & Output 09/19 1600 09/19 0800 09/19 0000 Intake Total 810 1020 Output Total Balance 810 1020 Intake, IV 10 20 Intake, Oral 800 1000 Physical Exam General Appearance: Alert, Oriented X3, Cooperative, No Acute Distress Skin: No Significant Lesion Neck: Supple Cardiovascular: Regular Rate, Normal S1, Normal S2 Lungs: Decreased air movement bilat. Bilat expiratory wheeze present. No crackles Abdomen: Soft, No Tenderness Extremities: No Edema Assessment/Plan Assessment: his is a 56-year-old female with non-home oxygen dependent COPD every day smoker presented to [facility] with persistent shortness of breath and wheezing. Admitted to floor for further management on COPD exacerbation. Vitals at the time of admission showed Chest x-ray: 1. Stable lung nodule left midlung. 2. Subtle prominence patchy opacity right lateral base. Findings may represent evolving infiltrate or atelectasis. Repeat chest x-ray after treatment recommended. PLAN 1. COPD exacerbation: Pt improving. Pulm exam shows less wheezes than yesterday. Pt satting on 2l o2; still SOB with minimal exertion. Not on home O2. * change to PO steroids * maintain NC for sats > 92 * TRC * Decrease ceftriaxone--> Po Ceftin * hold opiates * con't azithro 2. Every day smoker: counseled on smoking cessatioin. 3. History of left lung nodule is stable 5. LBBB on EKG which seems old when compared to previous EK Problem List: 1. COPD exacerbation 2. SOB (shortness of breath) Pain Ratin Pain Location: none Pain Goal: Remain pain free Pain Plan: none Tomorrow's Labs & Rationales: cbc bep DVT/Prophylaxis: pharmacological RONEL BOATENG 09/19/16 1409: Attending MD Review Statement Attending Statement Attending MD Statement: examined this patient, discuss w/resident/PA/ELECTRIC SPOT WELDER, agreed w/resident/PA/ELECTRIC SPOT WELDER, discussed with family, reviewed EMR data (avail), discussed with nursing, discussed with case mgmt, reviewed images, amended to note Attending Assessment/Plan: 56 o/f with pmh of copd followed by Dr Godfrey as o/p comes with copd exacerbation , taper steorids, abx, TRC, cont nebs, consulted Dr Godfrey Pulmonary. gi/dvt prophyalxis full code.
[2016-09-19 14:08] VITALS: BP 118/62
[2016-09-19] MEDS ORDERED: PREDNISONE20 M1 PO (21:01)
[2016-09-19] MEDS ORDERED: CEFUROXIME500 MG PO (21:05)
--- NOTE | 2016-09-19 21:07 | Patient Discharge Instructions ---
Discharge Instructions General Discharge Information You were seen/treated for: COPD EXACERBATION Special Instructions: PLEASE F/U WITH DR ELAINE IN 1 WEEK OF DISCHARGE PLEASE F.U WITH YOUR PCP IN 1 WEEK Acute Coronary Syndrome Inclusion Criteria At DC or during hospital stay patient has or had the following: ACS DIAGNOSIS No Discharge Core Measures Meds if any: Prescribed or Continued at Discharge Meds if any: NOT Prescribed or Continued at Discharge Congestive Heart Failure Inclusion Criteria At DC or during hospital stay patient has or had the following: CHF DIAGNOSIS No Discharge Core Measures Meds if any: Prescribed or Continued at Discharge Meds if any: NOT Prescribed or Continued at Discharge Cerebrovascular accident Inclusion Criteria At DC or during hospital stay patient has or had the following: CVA/TIA Diagnosis No Discharge Core Measures Meds if any: Prescribed or Continued at Discharge Meds if any: NOT Prescribed or Continued at Discharge Venous thromboembolism Inclusion Criteria VTE Diagnosis No VTE Type NONE VTE Confirmed by (Test) NONE Discharge Core Measures - Per Current guidelines, there needs to be overlap - treatment for the first 5 days of Warfarin therapy. - If discharged on Warfarin prior to 5 days of - overlap therapy, the patient will need to be - assessed for post discharge needs including - *Post discharge parental anticoagulation - *Warfarin and/or parental anticoagulation education - *Follow up date to check INR post discharge At least 5 days overlap therapy as Inpatient No Meds if any: Prescribed or Continued at Discharge Note: Overlap Therapy is Warfarin and Anticoagulant Meds if any: NOT Prescribed or Continued at Discharge
[2016-09-19 22:07] VITALS: BP 118/70
[2016-09-20 06:26] VITALS: BP 112/70
[2016-09-20 08:14] LABS: ABSOLUTE BASOPHIL COUNT 0.1 /CUMM (0.0-0.2); ABSOLUTE EOSINOPHIL COUNT 0.1 /CUMM (0.0-0.7); ABSOLUTE GRANULOCYTE CT 10.9 /CUMM (1.4-6.5); ABSOLUTE LYMPH COUNT 2.8 /CUMM (1.2-3.4); BASOPHIL % 0.9 % (0.0-2.0); EOSINOPHIL % 0.4 % (0-5); GRANULOCYTE % 73.4 % (42.2-75.2); HEMATOCRIT 44.1 % (37-47); MEAN CORPUSCULAR HGB 32.7 PG (27.0-31.0); MEAN CORPUSCULAR HGB CONC 32.8 G/DL (33.0-37.0); MEAN CORPUSCULAR VOLUME 99.5 FL (81.0-99.0); MEAN PLATELET VOLUME 10.4 FL (7.4-10.4); PLATELET COUNT 240 /CUMM (130-400); RBC DISTRIBUTION WIDTH 14.8 % (11.5-14.5); RED BLOOD CELL CT 4.43 /CUMM (4.20-5.40); WHITE BLOOD CELL COUNT 14.8 /CUMM (4.8-10.8)
--- NOTE | 2016-09-20 08:57 | PN- Housestaff ---
LEROY ANDESREN,FREDY 09/20/16 0857: Subjective Follow-up For: copd exacerbation Subjective: saw pt at bedside. She states that she feels much better. Will obtain o2 sats and dc home Review of Systems Constitutional: Denies: chills, fever, weakness. EENTM: Reports: no symptoms. Cardiovascular: Reports: no symptoms. Respiratory: Reports: cough, short of breath. Denies: wheezing. Gastrointestinal: Reports: no symptoms. Genitourinary: Reports: no symptoms. Musculoskeletal: Reports: no symptoms. Objective Last 24 Hrs of Vital Signs/I&O Vital Signs Date Time Temp Pulse Resp B/P B/P Pulse O2 O2 Flow FiO2 Mean Ox Delivery Rate 09/20 0805 95 Nasal 1.0L Cannula 09/20 0800 Nasal 1.0L Cannula 09/20 0626 98.3 77 20 112/70 98 Nasal 2.0L Cannula 09/20 0000 Nasal 1.0L Cannula 09/19 2207 97.9 88 20 118/70 94 09/19 1913 94 Nasal 2.0L Cannula Physical Exam General Appearance: Alert, Oriented X3, Cooperative, No Acute Distress Skin: No Rashes, No Significant Lesion HEENT: Atraumatic, PERRLA, EOMI Neck: Supple Cardiovascular: Regular Rate, Normal S1, Normal S2, No Murmurs Lungs: Normal Air Movement Abdomen: Soft, No Tenderness Neurological: Normal Gait, Normal Speech Extremities: No Clubbing, No Edema, No Tenderness/Swelling Assessment/Plan Assessment: his is a 56-year-old female with non-home oxygen dependent COPD every day smoker presented to [facility] with persistent shortness of breath and wheezing. Admitted to floor for further management on COPD exacerbation. PLAN 1. COPD exacerbation: Pt improving She was ambulated on room air and did momentarily dest to 87. I discussed extensively [facility] patient that she needed O2 prior to going home but she stated that she was fine and did not want to take the oxygen home. At rest she saturates above 92 on room air. Pulm exam shows some decreased air movement but improved overall. No wheezes or rhonchi. She has SOB with minimal exertion, but she states that she is almost at her baseline. Not on home O2. * change to PO steroids * maintain NC for sats > 92 * TRC * Decrease ceftriaxone--> Po Ceftin * hold opiates * con't azithro 2. Every day smoker: counseled on smoking cessatioin. 3. History of left lung nodule is stable 5. LBBB on EKG which seems old when compared to previous EK Problem List: 1. SOB (shortness of breath) 2. Lung nodule Pain Ratin Pain Location: none Pain Goal: Remain pain free Pain Plan: none Tomorrow's Labs & Rationales: none RONEL BOATENG 09/20/16 1500: Attending MD Review Statement Attending Statement Attending MD Statement: examined this patient, discuss w/resident/PA/NURSERY HELPER, agreed w/resident/PA/NURSERY HELPER, discussed with family, reviewed EMR data (avail), discussed with nursing, discussed with case mgmt, reviewed images, amended to note Attending Assessment/Plan: 56 o/f with pmh of copd followed by Dr Godfrey as o/p comes with copd exacerbation , taper steorids, abx, TRC, cont nebs, consulted Dr Godfrey Pulmonary. gi/dvt prophyalxis full code. patient discharged in stable condition. f/u op PCP and pulmonary.
[2016-09-20] MEDS ORDERED: PREDNISONE20 M1 PO (09:49)
--- NOTE | 2016-09-20 10:16 | NUR ---
PT FOUND ON RA. SATURATIONS 90-91% AT REST. AMBULATED THROUGH POLK. MAINTAINED SATURATION OF 90% FOR APPROXIMATELY 100 YARDS. DID DESATURATE TO 87% AT LOWEST AFTER WALK AROUND THE ENTIRE UNIT. SATURATION RE-CHECKED AT REST APPROXIMATELY 30 MINUTES LATER, 89%, REPORTED TO MD. PT STATES SHE DOES NOT WANT OXYGEN AT HOME AND WOULD LIKE TO REMAIN ON RA AT THIS TIME.
--- NOTE | 2016-09-20 10:50 | PN- Pulmonary ---
Subjective HPI/Critical Care Issues: pt seen and examined feeling better awaiting ambulatory sats on prednisone taper anticpating dc no leg edema no n/v/d/c Objective Current Medications: Current Medications Sig/Vicki Start time Last Medication Dose Route Stop Time Status Admin Acetaminophen 650 MG Q6P PRN 09/18 1530 AC PO Albuterol Sulfate 3 ML EVERY 4 HRS/AWAKE 09/19 0800 AC 09/20 INH 0801 Albuterol Sulfate 2 PUF Q4-6 PRN PRN 09/18 1430 AC INH Azithromycin 250 MG DAILY 09/19 1000 DC 09/19 PO 0914 Budesonide/ 2 PUF BID 09/18 2200 AC 09/20 Formoterol Fumarate INH 0824 Ceftriaxone Sodium 1,000 MG DAILY 09/19 1000 DC 09/19 IV 0914 Cefuroxime Sodium 500 MG Q12 09/20 2200 AC PO Cefuroxime Sodium 250 MG Q12 09/20 1000 DC 09/20 PO 0824 Cefuroxime Sodium 250 MG ONCE ONE 09/20 1000 DC PO 09/20 1001 Enoxaparin Sodium 40 MG DAILY 09/18 1400 AC 09/20 SC 0824 Patient Medication 1 ED .STK-MED ONE 09/19 1432 DC Teaching ED 09/19 1433 Prednisone 60 MG DAILY 09/20 1000 AC 09/20 PO 0823 Tiotropium [place] 1 PUF DAILY 09/19 1000 AC 09/20 INH 0824 Vital Signs & I&O Last 24 Hrs of Vitals and I&O: Vital Signs Date Time Temp Pulse Resp B/P B/P Pulse O2 O2 Flow FiO2 Mean Ox Delivery Rate 09/20 0805 95 Nasal 1.0L Cannula 09/20 0800 Nasal 1.0L Cannula 09/20 0626 98.3 77 20 112/70 98 Nasal 2.0L Cannula 09/20 0000 Nasal 1.0L Cannula 09/19 2207 97.9 88 20 118/70 94 09/19 1913 94 Nasal 2.0L Cannula 09/19 1600 Nasal 1.5L Cannula 09/19 1408 97.9 93 20 118/62 94 Room Air Exam Other Physical Findings: gen awake and alert heent ncat cvs s1, s2 lungs diminished bs, prolonged end expiratory phase abd soft, bs+ ext without edema Results Last 24 Hrs of Lab Results: Laboratory Tests 09/20/16 0650: CBC w Diff NO MAN DIFF REQ, RBC 4.43, MCV 99.5 H, MCH 32.7 H, RDW 14.8 H, MPV 10.4, Gran % 73.4, Lymphocytes % 18.8 L, Monocytes % 6.5, Eosinophils % 0.4, Basophils % 0.9, Absolute Granulocytes 10.9 H, Absolute Lymphocytes 2.8, Absolute Monocytes 1.0 H, Absolute Eosinophils 0.1, Absolute Basophils 0.1, PUBS MCHC 32.8 L Impression/Plan Impression/Plan Impression/Plan: Impression 56 year old woman * improved acute exacerbation of COPD * tobacco dependence * left lung opacity/nodule - previous workup was unrevealing Plan - steroid taper - would taper by 10mg every 2 days until off - check ambulatory sats and ensure >88% otherwise would require home o2 - f/u pulmonary outpt - trc/nebs - smoking cessation counseling DVT prophylaxis at all times DC planning
--- NOTE | 2016-09-28 16:11 | Discharge Summary ---
Visit Information Visit Dates Admission Date: 09/18/16 Discharge Date: 09/20/16 Hospital Course Course Attending Physician: RONEL BOATENG MD Primary Care Physician: KHARI HERNANDEZ Consulting Request: Consulting Specialty: Pulmonary Disease Hospital Course: This is a 56-year-old female with non-home oxygen dependent COPD every day smoker presented to [facility] with persistent shortness of breath and wheezing. Admitted to floor for further management on COPD exacerbation. Pt was seen for the following problems: 1. COPD exacerbation: On discharge pt was ambulated on room air and did momentarily desat to 87. I discussed extensively wtih patient that she needed O2 prior to going home but she stated that she was fine and did not want to take the oxygen home. At rest she saturates above 92 on room air. Pulm exam shows some decreased air movement but improved overall. No wheezes or rhonchi. She has SOB with minimal exertion, but she states that she is almost at her baseline. Not on home O2. * change to PO steroids and taper * maintain NC for sats > 92 * TRC * Decrease ceftriaxone--> Po Ceftin * con't azithro for total of 5 days trt 2. Every day smoker: counseled on smoking cessatioin. 3. History of left lung nodule is stable: Follow up out patient 5. LBBB on EKG which seems old when compared to previous Ekg: FOLLOW UP WITH PCP and discuss follow up with hospitality coordinator Allergies: Coded Allergies: Penicillins (CHILDHOOD ALLERGY 09/18/16) Disposition Summary Disposition Principal Diagnosis: COPD Additional Diagnosis: COPD Discharge Disposition: home or self care Discharge Instructions General Discharge Information Code Status: Full Code Patient's Diet: As tolerated Patient's Activity: as toelrated Follow-Up Instructions/Appts: see above Medications at Discharge Discharge Medications: Continue taking these medications: Fluticasone/Salmeterol (Advair 250-50 Diskus) 250 MCG-50 MCG/DOSE BLST.W.DEV 1 Puff Inhale through mouth TWICE DAILY Qty = 180 Comments: NOT GIVEN Tiotropium [place] (Spiriva) 18 MCG CAP.W.DEV 1 Capsule Inhale through mouth DAILY Qty = 90 Comments: Last Taken: 09/27/16 Time: 9AM Albuterol Sulfate (Proair Hfa) 90 MCG HFA.AER.AD 2 Puff Inhale through mouth EVERY 4-6 HOURS NEEDED as needed for SHORTNESS OF BREATH Qty = 25 Comments: NEBULIZER GIVEN WHILE IN HOSPITAL Copies To: KHARI HERNANDEZ
== END 2016-09-20 10:58 | DRG 190 ==
LOC: ENRESERVDT → ENRESERVTM → ERH 11:05 → 2NA 13:00 → ERHI 13:00 → 2NA 14:13 → ENPENDDIS 09-20 10:32 → 2NA 09-20 10:58
PROVIDERS: Emergency Medicine; Internal Medicine Nephrology; Student in an Organized Health Care Education/Training Program; ADMIT Internal Medicine
DX: J44.1 Chronic obstructive pulmonary disease with (acute) exacerbation (principal); J96.00 Acute respiratory failure, unspecified whether with hypoxia or hypercapnia; F17.200 Nicotine dependence, unspecified, uncomplicated; R91.1 Solitary pulmonary nodule
CPT/HCPCS: 2NAP; 82436; 87040; 87070; 87071; 87804; 87804-59; 93005; 93010; 94644; 96374; 96375; J0456; J0696; J0713; J1650; J2920; J3490; J7040

== ENCOUNTER 2016-09-26 03:11 | Inpatient (IN) | payer OTHER ==
[~2016-09-26] VITALS: Ht 165.1 cm; Wt 56.4 kg
[~2016-09-26 03:11] MED LIST: ADVAIR 250-501 EACH INH; CEFUROXIME500 MG PO; PREDNISONE20 M1 PO; PROAIR HFA8.5 GM INH; SPIRIVA18 MCG INH
--- NOTE | 2016-09-26 03:19 | ED DYSPNEA/ASTHMA COMPLAINT ---
History of Present Illness General Chief Complaint: Dyspnea (COPD, CHF, Other) Stated Complaint: BIBA, SOB Source: patient, family, old records, EMS Exam Limitations: no limitations Vital Signs & Intake/Output Vital Signs & Intake/Output Vital Signs Date Time Temp Pulse Resp B/P B/P Pulse O2 O2 Flow FiO2 Mean Ox Delivery Rate 09/26 0412 100 BIPAP 40% 09/26 0353 114 100 09/26 0329 95.9 124 24 148/96 100 Non 10L ReBreather Allergies Coded Allergies: Penicillins (CHILDHOOD ALLERGY 09/18/16) Reconcile Medications Albuterol Sulfate (Proair Hfa) 90 MCG HFA.AER.AD 2 PUF INH Q4-6 PRN PRN SHORTNESS OF BREATH (Reported) Cefuroxime Axetil (Cefuroxime) 500 MG TABLET 1 TAB PO BID COPD Fluticasone/Salmeterol (Advair 250-50 Diskus) 250 MCG-50 MCG/DOSE BLST.W.DEV 1 PUF INH BID BREATHING PROBLEMS (Reported) Prednisone 20 MG TABLET 10 MG PO DAILY COPD START STEROID TAPER FROM 09/20/16 TAKE 60 MG FOR 2 DAYS TAKE 50 MG FOR 2 DAYS TAKE 40 MG FOR 2 DAYS TAKE 30 MG FOR 2 DAYS TAKE 20 MG FOR 2 DAYS TAKE 10 MG FOR 2 DAYS AND THEN STOP Tiotropium [place] (Spiriva) 18 MCG CAP.W.DEV 1 CAP INH DAILY BREATHING PROBLEMS (Reported) Triage Nurses Notes Reviewed? yes HPI: Patient brought in by ambulance for increasing difficulty breathing and wheezing. Patient has a history of COPD and she continues to smoke. Patient was discharged from the hospital last week after COPD exacerbation. Patient is currently on a steroid taper finishing her antibiotics. Today patient had increased difficulty breathing and chest tightness. Positive wheezing. Positive dyspnea on exertion. No orthopnea. Patient used her nebulizer at home multiple times without relief. Patient was given Solu-Medrol and a DuoNeb by EMS. Past History Travel History Traveled to [place] past 21 day No Medical History Any Pertinent Medical History? see below for history Neurological: NONE EENT: NONE Cardiovascular: NONE Respiratory: COPD Gastrointestinal: NONE Hepatic: NONE Renal: NONE Musculoskeletal: NONE Psychiatric: NONE Endocrine: NONE Blood Disorders: NONE Cancer(s): NONE DESIGN ENGINEERING SPECIALIST/Reproductive: NONE History of MRSA: No History of VRE: No History of CDIFF: No Influenza Vaccine: 03/04/12 Surgical History Surgical History: non-contributory Psychosocial History Who do you live with Patient/Self Services at Home None What is your primary language Tristanian Tobacco Use: Current Daily Use Daily Tobacco Use Amount/Type: => 5 Cigarettes daily ETOH Use: occasional use Illicit Drug Use: denies illicit drug use Family History Family History, If Any: MOTHER Family hx of lung cancer MOTHER Relation not specified for: FH: hypertension Hx Contributory? No Review of Systems Review of Systems Constitutional: Reports: no symptoms. EENTM: Reports: no symptoms. Respiratory: Reports: see HPI, cough, short of breath, wheezing. Cardiovascular: Reports: see HPI, chest pain (TIGHTNESS). GI: Reports: no symptoms. Genitourinary: Reports: no symptoms. Musculoskeletal: Reports: no symptoms. Skin: Reports: no symptoms. Neurological/Psychological: Reports: no symptoms. Hematologic/Endocrine: Reports: no symptoms. Immunologic/Allergic: Reports: no symptoms. All Other Systems: Reviewed and Negative Physical Exam Physical Exam General Appearance: well developed/nourished, alert, awake, anxious, severe distress Head: atraumatic, normal appearance Eyes: Bilateral: PERRL, EOMI. Ears, Nose, Throat: normal pharynx, normal ENT inspection, hearing grossly normal Neck: normal inspection, supple, full range of motion Respiratory: decreased breath sounds, plerual rub, respiratory distress Cardiovascular: regular rate/rhythm, normal peripheral pulses Gastrointestinal: normal bowel sounds, soft, non-tender, no organomegaly Extremities: normal inspection, normal capillary refill, normal range of motion, no edema Neurologic/Psych: no motor/sensory deficits, awake, alert, oriented x 3, normal mood/affect Skin: intact, normal color, diaphoresis Lymphatic: no anterior cervical thang Core Measures ACS in differential dx? No Severe Sepsis Present: No Septic Shock Present: No Progress Differential Diagnosis: asthma, AMI, bronchitis, CHF, COPD, pulmonary embolism, pneumonia, pneumothorax Plan of Care: Orders Procedure Date/time Status Admit to inpatient 09/26 0436 Active BIPAP 09/26 0355 Complete ARTERIAL BLOOD GAS (GEN) 09/26 031 Complete Telemetry/Infrastructure Solutions Architect 09/26 031 Active BLOOD CULTURE 09/26 0316 Active TROPONIN LEVEL 09/26 031 Complete COMPREHENSIVE METABOLIC PANEL 09/26 031 Complete CBC WITHOUT DIFFERENTIAL 09/27 315 Complete EKG 09/26 0313 Active Laboratory Tests 09/26/16 0332: Anion Gap 10, Estimated GFR > 60, BUN/Creatinine Ratio 30.0 H, Glucose 240 H, Calcium 9.3, Total Bilirubin 0.5, AST 261 H, ALT 111 H, Alkaline Phosphatase 66, Troponin I 0.02, Total Protein 6.9, Albumin 4.3, Globulin 2.6, Albumin/ Globulin Ratio 1.7, CBC w Diff MAN DIFF ORDERED, RBC 4.93, MCV 99.3 H, MCH 32.5 H, RDW 15.4 H, MPV 9.6, Gran % 72.4, Lymphocytes % 22.5, Monocytes % 3.5, Eosinophils % 1.4, Basophils % 0.2, Absolute Granulocytes 11.3 H, Segmented Neutrophils 62, Absolute Lymphocytes 3.5 H, Lymphocytes 34, Monocytes 4, Absolute Monocytes 0.5, Absolute Eosinophils 0.2, Absolute Basophils 0, Platelet Estimate ADEQUATE, Polychromasia 1+, Hypochromic-Microcytic 1+, Ovalocytes FEW, Stomatocytes FEW, PUBS MCHC 32.7 L, Fld Total RBCs Counted 100 09/26/16 0325: pH 7.25 *L, pCO2 64 *H, pO2 251 H, HCO3 28, ABG O2 Sat (Measured) 92.0 L, P-50 (Temp Corrected) Y, Carboxyhemoglobin 6.9 *H, O2 Concentration % 10 LPM, Temperature 95.7 L, O2 Delivery Method NEB VIA A/M, Phlebotomy Draw Site RIGHT RADIAL Microbiology 09/26 0350 BLOOD: Blood Culture - RECD 09/26 033 BLOOD: Blood Culture - RECD Diagnostic Imaging: Viewed by Me: Radiology Read. Discussed w/RAD: Radiology Read. CXR Impression: PATIENT: KENRICK LYN PRESENT AGE: 56 PATIENT ACCOUNT NO: [id number] : 58 LOCATION: [facility] ORDERING PHYSICIAN: JOSÉ MIGUEL SPARKS MD SERVICE DATE: 09/26/16 EXAM TYPE: RAD - XRY- PORTABLE CHEST XRAY EXAMINATION: XR PORTABLE CHEST CLINICAL INFORMATION: Shortness of breath COMPARISON: Multiple priors, most recently 09/19/2016 TECHNIQUE: Portable AP view of the chest was obtained. FINDINGS: Cardiac leads overlie the chest. The lungs are hyperexpanded. Stable appearance of the 1.7 cm left midlung nodule. No consolidation, edema, or effusion. No pneumothorax. The cardiomediastinal silhouette is unchanged. IMPRESSION: Hyperexpanded lungs with no dense consolidation. Stable left midlung nodule. DICTATED BY: HAN FOWLER MD DATE/TIME DICTATED:09/26/16340 MVA REACTOR OPERATOR HEAD:DORA DATE/TIME TRANSCRIBED:09/26/16340 CONFIDENTIAL, DO NOT COPY WITHOUT APPROPRIATE AUTHORIZATION. <Electronically signed in Other Vendor System> SIGNED BY: HAN FOWLER MD 09/26/16346 Initial ED EKG: S TACH AT 128 WITH LBBB Prior EKG: unchanged Rhythm Strip: sinus tachycardia Comments: Patient seen hypercarbic respiratory failure based on her ABG and will go on BiPAP. Patient has never been on BiPAP before. Departure Departure Disposition: STILL A PATIENT Condition: Guarded Clinical Impression Primary Impression: Hypercapnic respiratory failure Secondary Impressions: COPD exacerbation, Transaminitis Referrals: CANDACE SHELBY,KHARI SANTOYO (PCP/Family) Departure Forms: Customer Survey General Discharge Information Admission Note Spoke With: MAGALIS TAPIA MD Documentation of Exam: Documentation of any treatments & extenuating circumstances including Concerns Regarding Discharge (functional status, medication knowledge or non-compliance, living conditions, etc.) that warrant an admission rather than observation: [ BiPAP before her hypercarbic respiratory failure, IV steroids, nebulizers, pulmonary consult, ultrasound to evaluate transaminitis, IV antibiotics] Critical Care Note Critical Care Note Critical Care Time: mins: (45 MIN)
--- NOTE | 2016-09-26 03:22 | NUR ---
PT BIBA C/O INCREASING DIFFICULTY BREATHING. PT HAS HX OF COPD, EMPHYSEMA, AND RBBB. PER EMS PT WAS EXPERIENCING SOB SINCE 1300 YESTERDAY AFTERNOON, ADMINISTERED HER ALBUTEROL INH PERIODICALLY THROUGHOUT THE DAY. KIM CALLED 911 DUE TO ALBUTEROL INH NOT WORKING. PER EMS PT O2 SAT IN THE 60'S. PLACED ON NRB, RECIEVED A DUONEB AND 125MG SOLUMEDROL BY EMS, ARRIVES AUDIBLY WHEEZING, SWEATING, O2 SAT 99%.
--- NOTE | 2016-09-26 03:31 | NUR ---
XRAY AT BEDSIDE FOR IMAGING
--- NOTE | 2016-09-26 03:32 | NUR ---
RESPIRATORY AT BEDSIDE FOR ABG
--- NOTE | 2016-09-26 03:47 | RADIOLOGY REPORT ---
EXAMINATION: XR PORTABLE CHEST CLINICAL INFORMATION: Shortness of breath COMPARISON: Multiple priors, most recently 09/19/2016 TECHNIQUE: Portable AP view of the chest was obtained. FINDINGS: Cardiac leads overlie the chest. The lungs are hyperexpanded. Stable appearance of the 1.7 cm left midlung nodule. No consolidation, edema, or effusion. No pneumothorax. The cardiomediastinal silhouette is unchanged. IMPRESSION: Hyperexpanded lungs with no dense consolidation. Stable left midlung nodule.
--- NOTE | 2016-09-26 03:56 | NUR ---
SECOND IV EST #20 IN RW BLOOD OBTAINED AND SENT TO LAB -SST,BLUE,LAV 2 SETS OF CX
--- NOTE | 2016-09-26 03:58 | NUR ---
PT PLACED ON BIPAP BY RT OCTAVIA, 40% AT A RATE OF 24. PT O2 SAT 100%.
[2016-09-26 03:59] LABS: ABSOLUTE BASOPHIL COUNT 0 /CUMM (0.0-0.2); ABSOLUTE EOSINOPHIL COUNT 0.2 /CUMM (0.0-0.7); ABSOLUTE GRANULOCYTE CT 11.3 /CUMM (1.4-6.5); ABSOLUTE LYMPH COUNT 3.5 /CUMM (1.2-3.4); ABSOLUTE MONOCYTE COUNT 0.5 /CUMM (0.10-0.60); BASOPHIL % 0.2 % (0.0-2.0); EOSINOPHIL % 1.4 % (0-5); GRANULOCYTE % 72.4 % (42.2-75.2); HEMATOCRIT 48.9 % (37-47); MEAN CORPUSCULAR HGB 32.5 PG (27.0-31.0); MEAN CORPUSCULAR HGB CONC 32.7 G/DL (33.0-37.0); MEAN CORPUSCULAR VOLUME 99.3 FL (81.0-99.0); MEAN PLATELET VOLUME 9.6 FL (7.4-10.4); PLATELET COUNT 234 /CUMM (130-400); RBC DISTRIBUTION WIDTH 15.4 % (11.5-14.5); RED BLOOD CELL CT 4.93 /CUMM (4.20-5.40); WHITE BLOOD CELL COUNT 15.6 /CUMM (4.8-10.8)
--- NOTE | 2016-09-26 04:19 | NUR ---
PT PROVIDED WITH BLANKET, LIGHTS DIMMED FOR COMFORT, CALL HERNANDEZ WITHIN REACH. SIDE RAILS IN UPRIGHT POSITION. PT REMAINS ON BIPAP, O2 SAT 100%. PT REPORTS SHE "FEELS BETTER", PT APPEARS TO NOT BE WORKING HARD TO BREATHE.
--- NOTE | 2016-09-26 04:48 | History & Physical ---
MICKEY BACA 09/26/16 0445: General Information and HPI MD Statement: I have seen and personally examined KENRICK LYN and documented this H&P. The patient is a 56 year old F who presented with a patient stated chief complaint of [SHORTNESS OF BREATH]. Source of Information: patient Exam Limitations: no limitations History of Present Illness: 56-year-old female with a past medical history of COPD on home oxygen, significant alcohol use, previous left lung opacity, previous history of recurring influenza, end-stage lung disease presented to the ER with chief complaints of shortness of breath. According to the patient she was discharged home this past 09/20/2016 at which time she was admitted for acute exacerbation of COPD. Patient states that she had been doing well after discharge and completed her course of antibiotics yesterday morning and is currently on steroid taper 30 mg daily. However the past couple of days she started to smoke again and woke up yesterday morning at around 1:30 PM with difficulty breathing and felt as if her chest was tightening up. She denies any fever, chills, nausea, vomiting, chest discomfort , abdominal pain, heartburn, diarrhea, constipation, urinary complaints, lower extremity swelling, orthopnea, PND. Of note she is an avid smoker and has been smoking a pack and half a day for almost 40 years now. She states that she did take around nebulizer which didn't help her with her breathing and so she called 911 and presented to the ER. Of note she been coughing and bringing up clear phlegm up until the past 2 days. She states that she was supposed to be discharged on supplemental oxygen, hwoever, she had refused. Of note she does have a history of a left bundle branch block that was seen on her EKG about 10 years ago which was evaluated by montessori paraprofessional. 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 She does have a cat which is hard for the past 5 years and there is no exposure to birds or dust. She does however report history of sick contacts within the past few days. She states she is allergic to penicillin but doesn't remember what kind of allergies she has. Family history is pertinent for a [place] and cirrhosis of the liver in her father, and lung cancer and hypertension in her mother. Allergies/Medications Allergies: Coded Allergies: Penicillins (CHILDHOOD ALLERGY 09/18/16) Home Med list Albuterol Sulfate (Proair Hfa) 90 MCG HFA.AER.AD 2 PUF INH Q4-6 PRN PRN SHORTNESS OF BREATH (Reported) Fluticasone/Salmeterol (Advair 250-50 Diskus) 250 MCG-50 MCG/DOSE BLST.W.DEV 1 PUF INH BID BREATHING PROBLEMS (Reported) Tiotropium [place] (Spiriva) 18 MCG CAP.W.DEV 1 CAP INH DAILY BREATHING PROBLEMS (Reported) Compliance With Home Meds: GOOD Past History Travel History Traveled to [place] past 21 day No Medical History Neurological: NONE EENT: NONE Cardiovascular: NONE Respiratory: COPD, emphysema Gastrointestinal: NONE Hepatic: NONE Renal: NONE Musculoskeletal: NONE Psychiatric: NONE Endocrine: NONE Blood Disorders: NONE Cancer(s): NONE WELDING SPECIALIST/Reproductive: NONE History of MRSA: No History of VRE: No History of CDIFF: No Influenza Vaccine: 03/04/12 Surgical History Surgical History: appendectomy, tonsillectomy Past Family/Social History Family History Relations & Conditions if any MOTHER Family hx of lung cancer MOTHER FATHER FH: cirrhosis FH: myocardial infarction Relation not specified for: FH: hypertension Psychosocial History Where do you live? Home Services at Home: None Smoking Status: Current Everyday Smoker ETOH Use: heavy use Illicit Drug Use: denies illicit drug use Employment History Employment Employed Profession/Employer Works at [employer] Review of Systems Review of Systems Constitutional: Denies: chills, fever, weakness. EENTM: Denies: visual changes. Cardiovascular: Denies: chest pain, orthopena, palpitations, peripheral edema, syncope. Respiratory: Reports: cough, short of breath, wheezing. Denies: orthopnea, sputum production. GI: Denies: abdominal pain, constipation, diarrhea, nausea, bloody stool, vomiting. Genitourinary: Reports: no symptoms. Musculoskeletal: Reports: no symptoms. Exam & Diagnostic Data Last 24 Hrs of Vital Signs/I&O Vital Signs Date Time Temp Pulse Resp B/P B/P Pulse O2 O2 Flow FiO2 Mean Ox Delivery Rate 09/26 0412 100 BIPAP 40% 09/26 0353 114 100 09/26 0329 95.9 124 24 148/96 100 Non 10L ReBreather Intake & Output 09/26 0800 09/26 0000 09/25 1600 Intake Total Output Total Balance Patient 120 lb Weight Weight Estimated Measurement Method Physical Exam General Appearance Alert, Oriented X3, Cooperative, Mild Distress Skin Temp/Moisture Exam: Warm/Dry HEENT Atraumatic, PERRLA, EOMI Neck Supple, No JVD, No thryomegaly, No LAD Cardiovascular Regular Rate, Normal S1, Normal S2, No Murmurs Lungs bilateral wheezes Abdomen Normal Bowel Sounds, Soft, No Tenderness Neurological Normal Speech, Strength at 5/5 X4 Ext, Normal Tone, Sensation Intact, Cranial Nerves 3-12 NL, Reflexes 2+ Extremities No Clubbing, No Cyanosis, Normal Pulses, No Tenderness/Swelling, tarce b/l edema Vascular Normal Pulses, Pulses Symmetrical Last 24 Hrs of Labs/Tim: Laboratory Tests 09/26/16331: Anion Gap 10, Estimated GFR > 60, BUN/Creatinine Ratio 30.0 H, Glucose 240 H, Calcium 9.3, Total Bilirubin 0.5, AST 261 H, ALT 111 H, Alkaline Phosphatase 66, Troponin I 0.02, Total Protein 6.9, Albumin 4.3, Globulin 2.6, Albumin/ Globulin Ratio 1.7, CBC w Diff MAN DIFF ORDERED, RBC 4.93, MCV 99.3 H, MCH 32.5 H, RDW 15.4 H, MPV 9.6, Gran % 72.4, Lymphocytes % 22.5, Monocytes % 3.5, Eosinophils % 1.4, Basophils % 0.2, Absolute Granulocytes 11.3 H, Segmented Neutrophils 62, Absolute Lymphocytes 3.5 H, Lymphocytes 34, Monocytes 4, Absolute Monocytes 0.5, Absolute Eosinophils 0.2, Absolute Basophils 0, Platelet Estimate ADEQUATE, Polychromasia 1+, Hypochromic-Microcytic 1+, Ovalocytes FEW, Stomatocytes FEW, PUBS MCHC 32.7 L, Fld Total RBCs Counted 100 09/26/16 0325: pH 7.25 *L, pCO2 64 *H, pO2 251 H, HCO3 28, ABG O2 Sat (Measured) 92.0 L, P-50 (Temp Corrected) Y, Carboxyhemoglobin 6.9 *H, O2 Concentration % 10 LPM, Temperature 95.7 L, O2 Delivery Method NEB VIA A/M, Phlebotomy Draw Site RIGHT RADIAL Microbiology 09/26 0350 BLOOD: Blood Culture - RECD 09/27 331 BLOOD: Blood Culture - RECD Diagnostic Data CXR Results FINDINGS: Cardiac leads overlie the chest. The lungs are hyperexpanded. Stable appearance of the 1.7 cm left midlung nodule. No consolidation, edema, or effusion. No pneumothorax. The cardiomediastinal silhouette is unchanged. IMPRESSION: Hyperexpanded lungs with no dense consolidation. Stable left midlung nodule. Assessment/Plan Assessment: 56-year-old female with a current smoker and has a past medical history of COPD not on, oxygen, who follows up with Dr. Godfrey and was recently discharged from [facility] on 09/20/2016 which time she was admitted for acute exacerbation of COPD presented to the ER with chief complaints of shortness of breath Vitals at the time of admission blood pressure 148/96, respiratory rate 24, tachycardic to 124, MAXIMUM TEMPERATURE 95.9. On 10 L of oxygen via nasal cannula was subsequently placed on 40% FiO2 with BiPAP On physical exam, she is alert and oriented 3, in mild respiratory distress on BiPAP sitting comfortably in bed. HEENT revealed PERRLA, examination of the neck revealed an elevated JVD. Cardiovascular exam was normal with normal S1, S2, no murmurs rubs or gallops appreciated. Respiratory exam pertinent for bilateral wheezes. Abdominal exam was benign and abdomen soft, nontender, nondistended normal bowel sounds in all quadrants. Examination of the lower extremities revealed trace bilateral edema. Neuro exam was grossly unremarkable. Labs pertinent for leukocytosis with a white blood cell count of 15,600, and H&H of 16.2/48.9, MCV of 99.3 with a platelet count 234,000. Serum chemistries revealed a sodium 137, potassium of 4.3, bicarbonate 29, anion gap of 10, BUN 24 with a creatinine of 0.8 with a glucose elevated to 240. LFTs revealed transaminitis with a total bili 2.5, AST/reactive to 61/111, alkaline phosphatase of 66 with troponin first set troponins negative 0.02. ABGs revealed severe respiratory acidosis with a pH of 7.25, PCO2 of 64, and carboxyhemoglobin of 6. Chest x-ray revealed hyperexpanded lungs with no dense consolidation, stable left midlung nodule. Last echocardiogram was in 2013 which showed an EF of 60%, no regional wall motion abnormalities. EKG revealed EKG revealed sinus tachycardia with a heart rate of 127, left ventricular hypertrophy, left bundle branch block, AR interval 152, normal axis, sinus tachycardia with a heart rate of 127, left ventricular hypertrophy, left bundle branch block that is unchanged, AR interval 152. No ST-T chnages. In the ER she received vancomycin and ceftazidime for possible healthcare associated pneumonia. Assessment and plan Admit patient to ICU pending results of repeat ABG. We'll downgrade to telemetry for continuous pulse ox. ABGs show marked improvement. #Acute hypercarbic respiratory failure Most likely secondary to COPD exacerbation as of this point cannot identify trigger except for smoking Start her on Solu-Medrol 40 mg IV every 8 Start her on azithromycin for its anti-inflammatory inflammatory properties Follow-up rapid flu, urinary antigen for strep pneumo and Legionella, as well as lower respiratory cultures Continue to maintain a BiPAP for now and pending results of repeat ABG titrate to saturations greater than 92% TRC nebs Overnight consult with Dr. Godfrey Consider CT chest Follow-up urine tox #Leukocytosis Most likely secondary to pain on steroids versus acute infarct infectious process (patient's been afebrile, is not bringing up any purulent phlegm). Continue to monitor #Transaminitis Most likely secondary to alcohol abuse Follow-up repeat LFTs tomorrow #Alcohol use Patient did drink 3-4 beers yesterday. Maintain on CIWA protocol for now Ativan per CIWA protocol #Impaired glycemia Most likely secondary to steroids versus being on prednisone Follow-up hemoglobin A1c # Nicotine Dependence - Counslled on smoking cessation - Nicotine patch 21mg daily - Diet - Nothing by mouth for now. Advance to Regular once a BiPAP DVT prophylaxis Heparin 5000 international unit 3 times a day subcutaneous CODE STATUS Full code As Ranked By This Provider Problem List: 1. COPD exacerbation 2. Transaminitis 3. Hypercapnic respiratory failure 4. ETOH abuse Core Measures/Miscellaneous Acute Coronary Syndrome ACS Diagnosis: No Cerebrovascular Accident CVA/TIA Diagnosis: No Congestive Heart Failure CHF Diagnosis: No Venous Thromboembolism VTE Risk Factors: Age > 40 [facility] prophylaxis d/t: No contraindications No VTE Pharm Prophylaxis d/t: No contraindications VTE Diagnosis: No VTE Type: NONE VTE Confirmed by (Test): NONE Severe Sepsis Severe Sepsis Present: No Septic Shock Septic Shock Present: No Miscellaneous Documentation Attending Case Discussed With: Dr. Beach Primary Care Physician: KHARI HERNANDEZ Patient sees these Specialists Dr. Godfrey Level of Patient Care: Critical Care (CRI) Consults Needed: Consulting Specialty: Critical Care Resident Review Statement Resident Statement: admitted by resident REGINATONEGREGORY 09/26/16 0548: Attending MD Review Statement Attending Statement Attending MD Statement: examined this patient, discuss w/resident/PA/LIGHTING DESIGNER, agreed w/resident/PA/LIGHTING DESIGNER, reviewed EMR data (avail), reviewed images, amended to note Attending Assessment/Plan: CC: Acute worsening of shortness of breath PMH: COPD, current smoker Patient was recently admitted on The for COPD exacerbation and discharged on September 20, comes back again for acute worsening of shortness of breath, wheezing. After discharge she started smoking again. She is currently on tapering dose of steroid, she tried her home nebulizations without much relief so called EMS. She denies any new sputum production, fever, chills, chest tightness, chest pain, dizziness, loss of consciousness, diaphoresis. she was saturating in 60s when EMS arrived at her home she received 125 mg Solu-Medrol, was placed on NRB by EMS. Vitals: Afebrile, tachycardic, tachypneic, blood pressure 148/96, saturating 100 % on BiPAP On exam: A O 3, cooperative, acute respiratory distress, accessory muscles in use, neck supple, JVD normal, no lymphadenopathy, no focal neurological deficit, no dependent edema, no obvious skin rashes or inflammation CVS: S1-S2, RRR. RS: Extensive wheezing bilaterally, no crackles. Abdomen: Soft, NT, ND, bowel sounds present. Peripheral pulses and perfusion normal. Labs: WBC 15.6, neutrophils 72%, BUN 24, glucose 240, AST 261, 80 111, troponins are 0.02, ABG: PH 7.25/64/251/28 on 10 L CXR: Hyperinflation, no evidence of pneumonia A and P Acute worsening of shortness of breath with history of extensive COPD and current smoker, most likely secondary to COPD exacerbation patient have acute hypercapnic respiratory failure. Was never on BiPAP in the past, never intubated. Will require close monitoring # Acute hypercapnic respiratory failure # COPD exacerbation # Current smoker # Leukocytosis secondary to current steroid use # Transaminitis: Secondary to alcoholism (she drank 3-4 drinks before coming, for respiratory distress) # Old left bundle branch block with tachycardia - Admit to critical care unit - Continue BiPAP at 14 and 6 with 40% FiO2 - Flu swab - Sputum culture sputum culture - Continue IV methylprednisolone 40 mg every 8 hours - Continue scheduled and when necessary albuterol and ipratropium nebulization - Mucinex 600 mg by mouth twice a day - IV azithromycin - ABG repeat in 2 hours of previous, if improving and pH normalized then discontinue BiPAP and continue O2 by nasal cannula - Pulmonary critical care consult; patient is known to Dr. Godfrey - Nicotine patch - When necessary Ativan per [facility] protocol. - Thiamine folic acid supplementation.
--- NOTE | 2016-09-26 05:05 | NUR ---
PT MEDICATED WITH FORTAZ PER EMAR
--- NOTE | 2016-09-26 05:05 | NUR ---
HOUSE STAFF AT BEDSIDE FOR PT EVALUATION
--- NOTE | 2016-09-26 05:24 | NUR ---
VANCOMYCIN MIXED IN 250NS. HOUSE STAFF KY'ED VANCOMYCIN ORDER. PER HOUSE STAFF THE VANCOMYCIN CAN BE WASTED.
--- NOTE | 2016-09-26 05:42 | NUR ---
BED ASSIGNMENT 103
--- NOTE | 2016-09-26 05:43 | NUR ---
REPORT GIVEN TO SHOBHA LARSON
[2016-09-26 06:20] VITALS: BP 101/64
--- NOTE | 2016-09-26 06:46 | NUR ---
RECEIVED PT FROM ER VIA STRETCHER-EKG MONITORING, 02 AT 2LNC, [address]-PT PLACED IN BED AND ATTACHED TO BEDSIDE MONITOR. ORIENTATION TO UNIT DONE. PT A/OX3, FOLLOWS COMMANDS, DENIES ANY PAIN AT PRESENT. ON CIWA SCALE-PT STATES LAST DRINK YESTERDAY. BREATH SOUNDS WITH EXP WHEEZES THOUGHOUT BILATERALLY. NO SOB OR COUGH NOTED AT PRESENT. MONITOR SHOWS NSR WITH BBB, NO ECTOPY NOTED AT PRESENT. ABD SOFT, NONTENDER, NONDISTENDED, POSITIVE BOWEL SOUNDS. HAS NOT VOIDED OF YET. SKIN INTACT
--- NOTE | 2016-09-26 07:35 | Cons- CRCU ---
SINA ANDERSEN,[facility] 09/26/16 0735: General Information and HPI Consulting Request Date of Consult: 09/26/16 Requested By: Dr Timmons Source of Information: patient, family, old records Exam Limitations: no limitations, unable to give history History of Present Illness: Ms. Huff is a 56-year-old female with past medical history of end-stage lung disease, history of COPD not currently on home O2, significant alcohol use, and history of recurring influenza who presented to the emergency department on 09/25 complaining of dyspnea and emergent shortness of breath. The patient states she was recently discharged from [facility] on 2016 where she was admitted for an episode of acute exacerbation of COPD. The patient was in her usual state of health until the early evening of 09/25/2016. The patient states that she may have overexerted herself during the course of the day. In the early evening of 09/25/2016. Patient states that she had a "little green party" at her home. She states that she had a few alcohol drinks, coupled with some recreational drug use and cigarette smoking. At approximately 1:30 AM the patient woke up and was severely short of breath. She states she had one cigarette and her symptoms became worse. She subsequently called the emergency medical services. At the time of admission, she denied fever, chills, nausea, vomiting. Following her last discharge the patient was supposed to been started on home oxygen however this has been unable to be executed. The patient is cautious about having home canned oxygen in her home environment owing to the fact that she, her boyfriend and her landlord all smoke. She would however be willing to get an oxygen generator instead. Allergies/Medications Allergies: Coded Allergies: Penicillins (CHILDHOOD ALLERGY 09/18/16) Home Med List: Albuterol Sulfate (Proair Hfa) 90 MCG HFA.AER.AD 2 PUF INH Q4-6 PRN PRN SHORTNESS OF BREATH (Reported) Fluticasone/Salmeterol (Advair 250-50 Diskus) 250 MCG-50 MCG/DOSE BLST.W.DEV 1 PUF INH BID BREATHING PROBLEMS (Reported) Tiotropium [place] (Spiriva) 18 MCG CAP.W.DEV 1 CAP INH DAILY BREATHING PROBLEMS (Reported) Current Medications: Current Medications Sig/Vicki Start time Last Medication Dose Route Stop Time Status Admin Acetaminophen 650 MG Q6P PRN 09/26 0500 AC PO Acetaminophen 1,000 MG Q6P PRN 09/26 0500 AC IV Albuterol Sulfate 3 ML EVERY 4 HRS/AWAKE 09/26 1200 AC 09/26 INH 1137 Azithromycin 500 MG DAILY 09/26 1000 AC 09/26 Sodium Chloride 250 ML IV 1144 Ceftazidime 1,000 MG ONCE ONE 09/26 0445 DC 09/26 IV 09/26 0446 0505 Ceftazidime 0 .STK-MED ONE 09/26 0444 DC .ROUTE Folic Acid 1 MG DAILY 09/26 1000 AC 09/26 PO 1022 Guaifenesin 600 MG Q12 09/26 1000 AC 09/26 PO 1022 Heparin Sodium 5,000 UNIT Q8 09/26 0600 AC (Porcine) SC Lorazepam 0 Q1P PRN 09/26 0615 AC IV Methylprednisolone 40 MG Q8 09/26 1400 DC IV Methylprednisolone 40 MG Q8 09/26 1400 AC IV Methylprednisolone 125 MG ONCE ONE 09/26 0530 DC IV 09/26 0531 Methylprednisolone 125 MG ONCE ONE 09/26 0530 CAN IV 09/26 0531 Morphine Sulfate 2 MG Q6-PRN PRN 09/26 0500 AC IV Multivitamins 1 TAB DAILY 09/26 1042 AC PO Nicotine 21 MG DAILY 09/26 1000 AC 09/26 TOP 1023 Thiamine HCl 100 MG DAILY 09/26 1000 AC 09/26 PO 1022 Tiotropium [place] 1 PUF DAILY 09/26 1000 DC INH Tiotropium [place] 1 PUF DAILY 09/26 1000 AC 09/26 INH 1023 Vancomycin HCl 1,000 MG ONCE ONE 09/26 0445 CAN Sodium Chloride 250 ML IV 09/26 0544 Vancomycin HCl 0 .STK-MED ONE 09/26 0444 DC .ROUTE Review of Systems Review of Systems Constitutional: Reports: see HPI. Denies: chills, diaphoresis, fever, malaise, weakness. EENTM: Denies: blurred vision, double vision, visual changes, eye pain. Cardiovascular: Denies: see HPI, chest pain, edema, orthopena, palpitations. Respiratory: Reports: short of breath. Denies: cough, hemoptysis, orthopnea, sputum production, stridor, wheezing. GI: Denies: abdominal pain, bloating, constipation, diarrhea, distention, bowel incontinence. Genitourinary: Denies: discharge, dysuria, frequency, hematuria, hesitation. Musculoskeletal: Denies: back pain, gout, joint pain, joint swelling, muscle pain. Skin: Denies: change in skin color, change in hair/nails, dryness. 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 Home Who Do You Live With? Boyfriend Services at Home: None Primary Language: Hungarian Smoking Status: Current Everyday Smoker ETOH Use: heavy use Illicit Drug Use: Endorses occasional Use, however does not state what she uses. Functional Ability ADLs Independent: dressing, eating, toileting, bathing. Ambulation: independent IADLs Independent: shopping, housework, finances, food prep, telephone, transportation , medication admin. Employment History Employment: Employed Profession/Employer: Works at [employer] Exam & Diagnostic Data Last 24 Hrs of Vital Signs/I&O Vital Signs Date Time Temp Pulse Resp B/P B/P Pulse O2 O2 Flow FiO2 Mean Ox Delivery Rate 09/26 1141 Nasal 2.0L Cannula 09/26 0800 97.2 99 24 116/72 09/26 0800 97.2 99 24 116/72 93 Nasal 2.0L Cannula 09/26 0800 93 Nasal 2.0L Cannula 09/26 0620 96.8 95 24 101/64 09/26 0620 94 Nasal 2.0L Cannula 09/26 0528 107 97 09/26 0526 101 99 09/26 0412 100 BIPAP 40% 09/26 0353 114 100 09/26 0329 95.9 124 24 148/96 100 Non 10L ReBreather Intake & Output 09/26 1600 09/26 0800 09/26 0000 Intake Total 0 Output Total 0 Balance 0 Intake, IV 0 Intake, Oral 0 Number 0 Bowel Movements Output, Urine 0 Patient 56.387 kg Weight Weight Bed scale Measurement Method Physical Exam General Appearance: well developed/nourished, no apparent distress, alert, awake Head: atraumatic, normal appearance Eyes: Bilateral: normal appearance, PERRL, EOMI. Ears, Nose, Throat: normal pharynx, normal ENT inspection, hearing grossly normal Neck: normal inspection, supple Respiratory: normal breath sounds Cardiovascular: regular rate/rhythm Gastrointestinal: normal bowel sounds, soft, non-tender Back: normal inspection, normal range of motion Extremities: normal inspection, normal capillary refill Last 48 Hrs of Labs/Tim: Laboratory Tests 09/26/16 0545: pH 7.40, pCO2 42, pO2 89, HCO3 26, ABG O2 Sat (Measured) 92.0 L, P-50 (Temp Corrected) Y, Carboxyhemoglobin 5.0, O2 Concentration % 30%, Temperature 95.9 L , Respiration Rate 20, O2 Delivery Method VISION-FFM, Vent Mode ST, Expiratory Pressure 6, Inspiratory Pressure 14, Phlebotomy Draw Site RIGHT RADIAL 09/26/16 0510: Urine Opiates Screen 3122.00 H, Methadone Screen < 40, Barbiturate Screen < 60, Ur Phencyclidine Scrn < 6.00, Amphetamines Screen < 100, U Benzodiazepines Scrn < 85, Urine Cocaine Screen < 50, Urine Cannabis Screen < 5.00, Urinalysis LIGHT H, Urine Color ICTRC H, Urine Clarity CLEAR, Urine pH 6.0, Ur Specific Francis 1.025, Urine Protein TRACE H, Urine Ketones TRACE H, Urine Nitrite NEG, Urine Bilirubin NEG, Urine Urobilinogen 0.2, Ur Leukocyte Esterase SMALL H, Ur Microscopic SEDIMENT EXAMINED, Urine RBC 1-3, Urine WBC 1-3 H, Ur Epithelial Cells MOD H, Urine Bacteria RARE H, Hyaline Casts 1-3 H, Urine Mucus MOD H, Urine Hemoglobin NEG, Urine Glucose NEG 09/26/16 0332: Anion Gap 10, Estimated GFR > 60, BUN/Creatinine Ratio 30.0 H, Glucose 240 H, Hemoglobin A1c 5.6, Calcium 9.3, Total Bilirubin 0.5, AST 261 H, ALT 111 H, Alkaline Phosphatase 66, Troponin I 0.02, Total Protein 6.9, Albumin 4.3, Globulin 2.6, Albumin/Globulin Ratio 1.7, CBC w Diff MAN DIFF ORDERED, RBC 4.93, MCV 99.3 H, MCH 32.5 H, RDW 15.4 H, MPV 9.6, Gran % 72.4, Lymphocytes % 22.5, Monocytes % 3.5, Eosinophils % 1.4, Basophils % 0.2, Absolute Granulocytes 11.3 H, Segmented Neutrophils 62, Absolute Lymphocytes 3.5 H, Lymphocytes 34, Monocytes 4, Absolute Monocytes 0.5, Absolute Eosinophils 0.2, Absolute Basophils 0, Platelet Estimate ADEQUATE, Polychromasia 1+, Hypochromic- Microcytic 1+, Ovalocytes FEW, Stomatocytes FEW, PUBS MCHC 32.7 L, Fld Total RBCs Counted 100, Hepatitis A IgM Ab NONREACTIVE, Hep Bs Antigen Pending, Hep B Core IgM Ab Conf NONREACTIVE, Hepatitis C Antibody NONREACTIVE 09/26/16 0325: pH 7.25 *L, pCO2 64 *H, pO2 251 H, HCO3 28, ABG O2 Sat (Measured) 92.0 L, P-50 (Temp Corrected) Y, Carboxyhemoglobin 6.9 *H, O2 Concentration % 10 LPM, Temperature 95.7 L, O2 Delivery Method NEB VIA A/M, Phlebotomy Draw Site RIGHT RADIAL Diagnostic Data CXR Results SERVICE DATE: 09/26/16 EXAM TYPE: RAD - XRY-PORTABLE CHEST XRAY EXAMINATION: XR PORTABLE CHEST CLINICAL INFORMATION: Shortness of breath COMPARISON: Multiple priors, most recently 09/19/2016 TECHNIQUE: Portable AP view of the chest was obtained. FINDINGS: Cardiac leads overlie the chest. The lungs are hyperexpanded. Stable appearance of the 1.7 cm left midlung nodule. No consolidation, edema, or effusion. No pneumothorax. The cardiomediastinal silhouette is unchanged. IMPRESSION: Hyperexpanded lungs with no dense consolidation. Stable left midlung nodule. DICTATED BY: JANETH ANDERSEN,HAN Assessment/Plan Impression/Plan: Ms. Huff is a 56-year-old female with past medical history of end-stage lung disease, history of COPD not on home O2, significant alcohol use, and history of recurring influenza who presented to the emergency department on 09/25/2016 complaining of dyspnea and emergent shortness of breath. Is currently admitted to the intensive care unit for close monitoring. Respiratory Acute hypercarbic respiratory failure due to COPD exacerbation. Patient needed BiPAP at the time of admission. Blood gas on admission did show the patient was in respiratory acidosis. Continue IV methylprednisolone 40 mg every 8. Leukocytosis due to steroid use. Patient currently Afebrile. Continue IV Azithromycin to reduce exacerbation of COPD. Continue supplement via nasal cannula/BiPAP to maintain saturation above 88%. Repeat ABG status post off BiPAP, values: 7.44, pCO2: 37, pO2: 85, HCO3:24 Patient will likely need to be maintained on oxygen as an outpatient. Consult case management for assistance with this. Metabolic Continue CIWA protocol owing to heavy alcohol use history. AST and ALT elevated owing to history of mouth alcohol use. Repeat hepatic Panel in Am. Thiamine, folic acid and multivitamin. Nicotine patch 21 mg. Smoking cessation given. Urine Opiate screen: 3122 Renal BUN elevated due to decreased by mouth intake and alcohol use prior to coming in. Repeat BEP in a.m. Continue to encourage by mouth intake. BUN:Cr ratio: 30 Diet. Regular DVT prophylaxis Heparin Sub Q Code FC Consult Acknowledgment - Thank you for your consult request. LORAINE ANDERSEN,Zheng FERNANDO 09/26/16 0804: Assessment/Plan Other Findings/Comments: I have seen and examined the patient, and I agree with the assessment and plan as detailed by the house staff above. The patient is a 56-year-old female with a past medical history significant for COPD on home oxygen, significant alcohol use, left lung opacity with a negative PET scan, history of recurring influenza and ongoing tobacco use. The patient was discharged on 09/20/2016 following an admission for acute exacerbation of COPD. The patient was well and near back to her baseline upon discharge. Following discharge, the patient continued to smoke heavily. She woke up at 1:30 in the morning with increased shortness of breath, and wheezing. The patient did not use her nebulizer at that time. She called 911 as her breathing was worse. In the ED, the patient had significant dyspnea. Her ABG was consistent with respiratory acidosis. The patient was placed on BiPAP with significant improvement. A sputum culture was requested, and IV Solu-Medrol was started. The patient was also prescribed IV azithromycin. Her chest x-ray showed no acute infiltrate. At the present time, the patient is off BiPAP. She reports feeling markedly improved. She wants to quit smoking and is requesting a nicotine patch. Impression: 1. Acute hypercarbic respiratory failure, improved post BiPAP therapy. 2. Acute exacerbation of COPD. 3. Leukocytosis secondary to steroid use. 4. Transaminitis secondary to alcoholism. 5. Old left bundle branch block with tachycardia. Plan: * Check an ABG off BiPAP. * Follow-up culture data. * Continue IV Solu-Medrol and IV azithromycin for now. * Continue nebs/TRC every 4 hours while awake. * Continue nicotine patch. * Monitor on CIWA protocol. * Multivitamin, thiamine and folate to be administered. * DVT prophylaxis at all times. * Continue all supportive care. Consult Acknowledgment - Thank you for your consult request. - Thank you for your consult request.
[2016-09-26 08:00] VITALS: BP 116/72
--- NOTE | 2016-09-26 09:20 | NUR ---
Patient is awake, alert and oriented x's 3, able to answer questions appropriately and follow all commands. NSR-ST with BBB on tele monitor. HR= 90-100's. SBP: 100-120's and pt denies chest pain. On 2L nc, lungs diminished with an expiratory wheeze. O2 sats 93-95%. Non productive cough currently noted. SOB on exertion. Abdomen is soft and non tender with + bowel sounds. Tolerating po well. Voids indep. Skin intact with no areas of pressure injury noted. She currently denies pain and vitals are stable. Will continue to closely monitor patient.
[2016-09-26 16:00] VITALS: BP 118/70
[2016-09-27] VITALS: BP 100/80
--- NOTE | 2016-09-27 | NUR ---
PATIENT RECEIVED ASLEEP, AWAKENED WITH VS CHECK- ORIENTED X3, DENIES ANY C/O DISCOMFORT, SKIN PINK, WARM AND DRY, ABLE TO FOLLOW COMMANDS AND ANSWER QUESTIONS EASILY- CIWA SCORE 0, O2 AT 1L/MIN VIA NC- O2 SAT AT 98%- BREATHE SOUNDS DISTANT, NO AUDIBLE CRACKLES WHEEZES, NONPRODUCTIVE COUGH NOTED, ABDOMEN SOFT, +BS, RE-SETTLED FOR SLEEP, CLL LIGHT WITHIN REACH
[2016-09-27 06:03] LABS: ABSOLUTE BASOPHIL COUNT 0.3 /CUMM (0.0-0.2); ABSOLUTE EOSINOPHIL COUNT 0 /CUMM (0.0-0.7); ABSOLUTE GRANULOCYTE CT 18.8 /CUMM (1.4-6.5); ABSOLUTE LYMPH COUNT 0.8 /CUMM (1.2-3.4); ABSOLUTE MONOCYTE COUNT 1.1 /CUMM (0.10-0.60); BASOPHIL % 1.5 % (0.0-2.0); EOSINOPHIL % 0 % (0-5); GRANULOCYTE % 89.6 % (42.2-75.2); HEMATOCRIT 48.6 % (37-47); MEAN CORPUSCULAR HGB 32.3 PG (27.0-31.0); MEAN CORPUSCULAR HGB CONC 32.6 G/DL (33.0-37.0); MEAN CORPUSCULAR VOLUME 99.3 FL (81.0-99.0); MEAN PLATELET VOLUME 10.6 FL (7.4-10.4); PLATELET COUNT 235 /CUMM (130-400); RBC DISTRIBUTION WIDTH 15.6 % (11.5-14.5); RED BLOOD CELL CT 4.89 /CUMM (4.20-5.40)
--- NOTE | 2016-09-27 06:20 | PN- Resident CRCU ---
Subjective HPI/CRCU Issues: Ms. Huff was seen and examined this morning. She is resting comfortably in bed. She denies any active issues overnight and states that she was able to get some rest although found she was woken up several times owing to nose from the surrounding area. Patient does continue to endorse a wet nonproductive cough. She denies any fever, chills, nausea, vomiting. 24 Hour Events: No Events Objective Vital Signs & I&O Last 8 Hrs of Vitals and I&O: T: 96.7 OH 80 RR: 20 BP:100/80 1L NC Exam General Appearance: well developed/nourished, no apparent distress, alert, awake Neck: normal inspection Respiratory: normal breath sounds, decreased breath sounds Cardiovascular: regular rate/rhythm Gastrointestinal: normal bowel sounds, soft, non-tender Extremities: normal inspection Cranial Nerves: normal hearing, normal speech Current Medications: Current Medications Sig/Vicki Start time Last Medication Dose Route Stop Time Status Admin Acetaminophen 650 MG Q6P PRN 09/26 0500 AC PO Acetaminophen 1,000 MG Q6P PRN 09/26 0500 AC IV Albuterol Sulfate 3 ML EVERY 4 HRS/AWAKE 09/26 1200 AC 09/26 INH 2024 Azithromycin 500 MG DAILY 09/26 1000 AC 09/26 Sodium Chloride 250 ML IV 1144 Folic Acid 1 MG DAILY 09/26 1000 AC 09/26 PO 1022 Guaifenesin 600 MG Q12 09/26 1000 AC 09/26 PO 2115 Heparin Sodium 5,000 UNIT Q8 09/27 0600 AC (Porcine) SC Heparin Sodium 5,000 UNIT Q8 09/26 0600 DC (Porcine) SC Lorazepam 0 Q1P PRN 09/26 0615 AC IV Methylprednisolone 40 MG Q8 09/26 1400 DC IV Methylprednisolone 40 MG Q8 09/26 1400 AC 09/27 IV 0536 Morphine Sulfate 2 MG Q6-PRN PRN 09/26 0500 AC IV Multivitamins 1 TAB DAILY 09/26 1042 AC 09/26 PO 1404 Nicotine 21 MG DAILY 09/26 1000 AC 09/26 TOP 1023 Thiamine HCl 100 MG DAILY 09/26 1000 AC 09/26 PO 1022 Tiotropium [place] 1 PUF DAILY 09/26 1000 DC INH Tiotropium [place] 1 PUF DAILY 09/26 1000 AC 09/26 INH 1023 Impression/Plan Impression/Problem List Impression: Ms. Huff is a 56-year-old female with past medical history of end-stage lung disease, history of COPD not on home O2, significant alcohol use, and history of recurring influenza who presented to the emergency department on 09/25/2016 complaining of dyspnea and emergent shortness of breath. Respiratory Acute hypercarbic respiratory failure due to COPD exacerbation. Patient needed BiPAP at the time of admission. Blood gas on admission did show the patient was in respiratory acidosis. Continue IV methylprednisolone 40 mg every 8 hours, change to PO Prednisone. Leukocytosis due to steroid use. Patient currently Afebrile. Continue IV Azithromycin to reduce exacerbation of COPD. Continue supplement via nasal cannula/BiPAP to maintain saturation above 88%. Repeat ABG status post off BiPAP (09/27/2016), values: 7.44, pCO2: 37, pO2: 85, HCO3:24 Patient will likely need to be maintained on oxygen as an outpatient. Consult case management for assistance with this. Metabolic Continue CIWA protocol owing to heavy alcohol use history. AST and ALT elevated owing to history of mouth alcohol use. CIWA: 0,0,0,0,0,0 Thiamine, folic acid and multivitamin. Nicotine patch 21 mg. Smoking cessation given. Urine Opiate screen: 3122 Renal Repeat BEP in a.m. Continue to encourage by mouth intake. BUN:Cr ratio: 22.9 Diet. Regular DVT prophylaxis Heparin Sub Q Code FC Problem List: 1. COPD exacerbation 2. Respiratory disease 3. Transaminitis 4. ETOH abuse Pain Ratin Tomorrow's Labs & Rationales: NA Plan DVT/Prophylaxis: mechanical, pharmacological, early ambulation low risk
--- NOTE | 2016-09-27 06:21 | NUR ---
NO CHANGES IN STATUS NOTED OVERNIGHT, O2 SAT 96 TO 97% ON 1L/MIN O2 VIA NC THIS AM, BREATHE SOUNDS REMAIN DISTANT, ABLE TO COUGH AND EXPECTORATE WHITISH SECRETIONS THIS AM, AWAITING AM MD ROUNDS
[2016-09-27 08:00] VITALS: BP 106/64
--- NOTE | 2016-09-27 09:38 | Patient Discharge Instructions ---
Discharge Instructions General Discharge Information You were seen/treated for: Acute hypercarbic respiratory failure. Special Instructions: -Follow-up with your primary care physician within one week after discharge. Please inform your primary care physician of this admission to the ICU. -Please follow-up with tax audit manager Zheng Rae MD on 10/02/2016. -You might be considered for lung cancer screening. -Please follow-up with the [facility] ([address] [place] [address], [facility]). We have made you an appointment. Your appointment is scheduled for: 10/09/2016. 2.00 pm. Diet Continue normal diet: Yes Activity Full Activity/No Limits: Yes Acute Coronary Syndrome Inclusion Criteria At DC or during hospital stay patient has or had the following: ACS DIAGNOSIS No Discharge Core Measures Meds if any: Prescribed or Continued at Discharge Meds if any: NOT Prescribed or Continued at Discharge Congestive Heart Failure Inclusion Criteria At DC or during hospital stay patient has or had the following: CHF DIAGNOSIS No Discharge Core Measures Meds if any: Prescribed or Continued at Discharge Meds if any: NOT Prescribed or Continued at Discharge Cerebrovascular accident Inclusion Criteria At DC or during hospital stay patient has or had the following: CVA/TIA Diagnosis No Discharge Core Measures Meds if any: Prescribed or Continued at Discharge Meds if any: NOT Prescribed or Continued at Discharge Venous thromboembolism Inclusion Criteria VTE Diagnosis No VTE Type NONE VTE Confirmed by (Test) NONE Discharge Core Measures - Per Current guidelines, there needs to be overlap - treatment for the first 5 days of Warfarin therapy. - If discharged on Warfarin prior to 5 days of - overlap therapy, the patient will need to be - assessed for post discharge needs including - *Post discharge parental anticoagulation - *Warfarin and/or parental anticoagulation education - *Follow up date to check INR post discharge At least 5 days overlap therapy as Inpatient No Meds if any: Prescribed or Continued at Discharge Note: Overlap Therapy is Warfarin and Anticoagulant Meds if any: NOT Prescribed or Continued at Discharge
--- NOTE | 2016-09-27 09:52 | PN- CRCU ---
Subjective HPI/Critical Care Issues: The patient is awake and alert. She reports feeling markedly improved. She is less short of breath and she has no increased chest congestion or sputum production. Overall she feels better and wants to go home soon. Objective Current Medications: Current Medications Sig/Vicki Start time Last Medication Dose Route Stop Time Status Admin Acetaminophen 650 MG Q6P PRN 09/26 0500 AC PO Acetaminophen 1,000 MG Q6P PRN 09/26 0500 AC IV Albuterol Sulfate 3 ML EVERY 4 HRS/AWAKE 09/26 1200 AC 09/27 INH 0831 Azithromycin 500 MG DAILY 09/26 1000 AC 09/27 Sodium Chloride 250 ML IV 0844 Folic Acid 1 MG DAILY 09/26 1000 AC 09/27 PO 0844 Guaifenesin 600 MG Q12 09/26 1000 AC 09/27 PO 0845 Heparin Sodium 5,000 UNIT Q8 09/27 0600 AC (Porcine) SC Heparin Sodium 5,000 UNIT Q8 09/26 0600 DC (Porcine) SC Lorazepam 0 Q1P PRN 09/26 0615 AC IV Methylprednisolone 40 MG Q12 09/27 1000 UNVr IV Methylprednisolone 40 MG Q8 09/26 1400 DC IV Methylprednisolone 40 MG Q8 09/26 1400 DC 09/27 IV 0536 Morphine Sulfate 2 MG Q6-PRN PRN 09/26 0500 AC IV Multivitamins 1 TAB DAILY 09/26 1042 AC 09/27 PO 0845 Nicotine 21 MG DAILY 09/26 1000 AC 09/27 TOP 0844 Thiamine HCl 100 MG DAILY 09/26 1000 AC 09/27 PO 0845 Tiotropium [place] 1 PUF DAILY 09/26 1000 DC INH Tiotropium [place] 1 PUF DAILY 09/26 1000 AC 09/27 INH 0846 Vital Signs & I&O Last 24 Hrs of Vitals and I&O: Vital Signs Date Time Temp Pulse Resp B/P B/P Pulse O2 O2 Flow FiO2 Mean Ox Delivery Rate 09/27 0833 94 Nasal 1.0L Cannula 09/27 0600 80 20 09/27 0400 80 18 09/27 0200 70 18 09/27 0000 96.7 75 20 100/80 09/27 0000 98 Nasal 1.0L Cannula 09/27 0000 97.9 75 22 100/80 98 Nasal 1.0L Cannula 09/26 1605 97 Nasal 2.0L Cannula 09/26 1600 97.1 96 18 118/70 09/26 1600 97.1 96 18 118/70 96 Nasal 2.0L Cannula 09/26 1600 96 Nasal 2.0L Cannula 09/26 1141 Nasal 2.0L Cannula Intake & Output 09/27 1600 09/27 0800 09/27 0000 Intake Total 400 1060 Output Total Balance 400 1060 Intake, IV 10 Intake, Oral 400 1050 Physical Exam General Appearance: well developed/nourished, no apparent distress, alert, awake Head: atraumatic, normal appearance Neck: normal inspection, supple Respiratory: bilateral ronchi and wheezing Cardiovascular: regular rate/rhythm Gastrointestinal: normal bowel sounds, soft, non-tender Back: normal inspection, normal range of motion Extremities: normal inspection, normal capillary refill Impression/Plan Impression/Plan Impression/Plan: 1. AECOPD. 2. Ongoing tobacco use. 3. Leukocytosis secondary to steroid use. 4. Transaminitis secondary to alcoholism. 5. Old left bundle branch block with tachycardia. Recommendations: * Monitor off Bipap. * Follow-up culture data. * Change to oral steroids - prednisone 40 mg daily. Will taper down to off as necessary. * Continue nebs/TRC every 4 hours while awake. * Continue nicotine patch. * Monitor on CIWA protocol. * Multivitamin, thiamine and folate to be administered. * DVT prophylaxis at all times. * Continue all supportive care. * Discharge planning. * Tocacco cessation. * Will place in the lung cancer screening program.
[2016-09-27] MEDS ORDERED: PREDNISONE10 M2 PO (10:01)
[2016-09-27] MEDS ORDERED: ZITHROMAX TRI-500 M1 PO (10:01)
--- NOTE | 2016-09-27 11:08 | NUR ---
NURSING NOTE: PATIENTS O2 SAT WITH AMBULATION ON RA WAS 90%
--- NOTE | 2016-09-27 11:28 | NUR ---
NURSING NOTE: PATIENTS O2 SAT ON 1L IS 94%, PATIENTS O2 SAT ON ROOM AIR AT REST 93%, PATIENTS O2 SAT WITH AMBULATION ON ROOM AIR 90%, PATIENTS O2 SAT ON 1L AFTER AMBULATION 93%.
--- NOTE | 2016-10-06 06:26 | Discharge Summary ---
Visit Information Visit Dates Admission Date: 09/26/16 Discharge Date: 09/27/16 Hospital Course Course Attending Physician: Zheng RAE MD Primary Care Physician: KHARI HERNANDEZ Consulting Request: Consulting Specialty: Critical Care Hospital Course: Ms. Huff is a 56-year-old female with past medical history of end-stage lung disease, history of COPD not on home O2, significant alcohol use, and history of recurring influenza who presented to the emergency department on 09/25/2016 complaining of dyspnea and emergent shortness of breath. She was admitted to the ICU and the following was the care she received under us : Acute hypercarbic respiratory failure due to COPD exacerbation. Patient needed BiPAP at the time of admission. Blood gas on admission did show the patient was in respiratory acidosis. She was started on IV Methylprednisolone 40 mg every 8, she was also started on IV Azithromycin. Patient was maintained on supplemental oxygen via Nasal Canula. On Day two of admission, the patient was converted to oral prednisone 40 mg. The patient was evaluated for potential home oxygen. However her oxygenation requirements while ambulating were sufficient. Therefore, following a conversation with Case Management, the patient did not meet the criteria for home oxygen. She was discharged home on a prednisone taper and a Azithromycin, to complete a five day course. Transaminitis secondary to alcoholism. At the time of admission, ALT and AST were elevated.The patient was placed on CIWA protocol owing to heavy alcohol use history. The patient was started on: Thiamine, Folic acid and a Multivitamin. DONALD Due to Dehydration. BUN elevated due to decreased by mouth intake and alcohol use prior to coming in. Prior to discharge, her BUN and Cr values were within normal limits. Nicotine Dependance The patient has a significant smoking history. She was given a Nicotine patch 21 mg. Smoking cessation was also provided and she was encouraged to consider quitting. The patient was a full code. Allergies: Coded Allergies: Penicillins (CHILDHOOD ALLERGY 09/18/16) Pertinent Lab Results: SERVICE DATE: 09/26/16 EXAM TYPE: RAD - XRY-PORTABLE CHEST XRAY FINDINGS: Cardiac leads overlie the chest. The lungs are hyperexpanded. Stable appearance of the 1.7 cm left midlung nodule. No consolidation, edema, or effusion. No pneumothorax. The cardiomediastinal silhouette is unchanged. IMPRESSION: Hyperexpanded lungs with no dense consolidation. Stable left midlung nodule. DICTATED BY: JANETH ANDERSEN,HAN Disposition Summary Disposition Principal Diagnosis: Acute hypercarbic respiratory failure. Additional Diagnosis: Transaminitis secondary to alcoholism. DONALD Due to Dehydration. Nicotine Dependance Discharge Disposition: home or self care Discharge Instructions General Discharge Information Code Status: Full Code Patient's Diet: Heart Healthy Patient's Activity: As Tolerated Follow-Up Instructions/Appts: Follow-up with your primary care physician within one week after discharge. Please inform your primary care physician of this admission to the ICU. Please follow-up with therapist speech Zheng Rae MD on 10/02/2016. You might be considered for lung cancer screening. Please follow-up with the [facility] ([address] [place] [address], [facility]). We have made you an appointment. Your appointment is scheduled for: 10/09/2016. 2.00 pm. Medications at Discharge Discharge Medications: Continue taking these medications: Fluticasone/Salmeterol (Advair 250-50 Diskus) 250 MCG-50 MCG/DOSE BLST.W.DEV 1 Puff Inhale through mouth TWICE DAILY Qty = 180 Comments: NOT GIVEN Tiotropium [place] (Spiriva) 18 MCG CAP.W.DEV 1 Capsule Inhale through mouth DAILY Qty = 90 Comments: Last Taken: 09/27/16 Time: 9AM Albuterol Sulfate (Proair Hfa) 90 MCG HFA.AER.AD 2 Puff Inhale through mouth EVERY 4-6 HOURS NEEDED as needed for SHORTNESS OF BREATH Qty = 25 Comments: NEBULIZER GIVEN WHILE IN HOSPITAL Start taking the following new medications: Azithromycin (Zithromax Tri-Donaldo) 500 MG TABLET 1 Tablet ORAL DAILY Qty = 3 No Refills Prednisone (Prednisone) 10 MG TABLET 1 Tablet ORAL TWICE DAILY Qty = 16 No Refills Instructions: This is a prednisone taper. On 09/28/2016, please take 4 tablets On 09/29 and 09/30, please take 3 tablets On 10/01 and 10/02, please take 2 tablets On 10/03 and 10/04, please take 1 tablet and then stop Copies To: LORAINE ANDERSEN,Zheng FERNANDO; CANDACE SHELBY,KHARI SANTOYO
== END 2016-09-27 15:15 | DRG 190 ==
LOC: ERH 03:11 → ERHI 04:36 → CRI 04:36 → ENRESERV 05:40 → CANBEDREQ 05:57 → CRI 06:23
PROVIDERS: Emergency Medicine; Internal Medicine Infectious Disease; ADMIT Internal Medicine
PROC: 5A09357 Assistance with Respiratory Ventilation, Less than 24 Consecutive Hours, Continuous Positive Airway Pressure (ICD-10-PCS; principal; 2016-09-26)
DX: J44.1 Chronic obstructive pulmonary disease with (acute) exacerbation (principal); J96.02 Acute respiratory failure with hypercapnia; F17.200 Nicotine dependence, unspecified, uncomplicated; F10.20 Alcohol dependence, uncomplicated; D72.828 Other elevated white blood cell count; Z80.1 Family history of malignant neoplasm of trachea, bronchus and lung
CPT/HCPCS: CCU; 80307; 81001; 82436; 87040; 87070; 87449; 87450; 87804; 87804-59; 93005; 93010; 94799; 96374; 99291; J0456; J0713; J1644; J2920; J3370; J3490; J7040

== ENCOUNTER 2017-05-15 14:35 | Emergency (ER) | payer OTHER ==
[~2017-05-15 14:35] MED LIST changes: +CEPHALEXIN500 M3 PO; +LASIX20 M1 PO; +MEDROL4 M2 PO; +PREDNISONE10 M2 PO; +ZITHROMAX TRI-500 M1 PO
[2017-05-16] MEDS ORDERED: MUCINEX1200 M1 PO (06:34)
[2017-05-16] MEDS ORDERED: ZYRTEC10 M3 PO (06:35)
== END 2017-05-15 15:42 | disposition admitted as inpatient to this hospital (09) ==
LOC: ERH 14:35
DX: M79.89 Other specified soft tissue disorders (principal)

== ENCOUNTER 2017-10-27 09:06 | Emergency (ER) | payer OTHER ==
[~2017-10-27] VITALS: Ht 165.1 cm; Wt 44.9 kg
[~2017-10-27 09:06] MED LIST changes: +MUCINEX1200 M1 PO; +ZYRTEC10 M3 PO
--- NOTE | 2017-10-27 09:13 | ED DYSPNEA/ASTHMA COMPLAINT ---
History of Present Illness General Chief Complaint: Dyspnea (COPD, CHF, Other) Stated Complaint: SOB PER PT "COPD" CHEST TIGHTNESS Source: patient, family, old records Exam Limitations: no limitations Vital Signs & Intake/Output Vital Signs & Intake/Output Vital Signs Date Time Temp Pulse Resp B/P B/P Pulse O2 O2 Flow FiO2 Mean Ox Delivery Rate 10/27 1100 96 Room Air 10/27 1100 97.0 88 20 110/70 96 Room Air 10/27 0914 96.9 99 18 109/73 94 Room Air Allergies Coded Allergies: Penicillins (CHILDHOOD ALLERGY 09/18/16) Reconcile Medications Albuterol Sulfate (Proair Hfa) 90 MCG HFA.AER.AD 2 PUF INH Q4-6 PRN PRN SHORTNESS OF BREATH (Reported) Azithromycin (Zithromax Tri-Donaldo) 500 MG TABLET 1 TAB PO DAILY COPD Exacerbation Cephalexin 500 MG CAPSULE 1 CAP PO Q6H cellulitis Cetirizine HCl (Zyrtec) 10 MG TABLET (Unknown Dose) PO DIALY ALLERGIES ( Reported) Fluticasone/Salmeterol (Advair 250-50 Diskus) 250 MCG-50 MCG/DOSE BLST.W.DEV 1 PUF INH BID BREATHING PROBLEMS (Reported) Furosemide (Lasix) 20 MG TABLET 1 TAB PO DAILY PRN edema Guaifenesin (Mucinex) 1,200 MG TAB.ER.12H 1,200 MG PO BID PHELHM (Reported) Methylprednisolone. (Medrol) 4 MG TAB.DS.PK 1 DP PO AD copd 6 on day 1 then reduce by one tablet daily until gone Methylprednisolone. (Medrol) 4 MG TAB.DS.PK 1 DP PO AD COPD 6 on day 1 then reduce by one tablet daily until gone Prednisone 10 MG TABLET 1 TAB PO BID COPD Exacerbation This is a prednisone taper. On 09/28/2016, please take 4 tablets On 09/29 and 09/30, please take 3 tablets On 10/01 and 10/02, please take 2 tablets On 10/03 and 10/04, please take 1 tablet and then stop Prednisone 10 MG TABLET 0 PO DAILY copd 4 tabs po day 1-3 3 tabs po day 4-5 2 tabs po day 6-7 1 tab po day 8-9 Tiotropium [place] (Spiriva) 18 MCG CAP.W.DEV 1 CAP INH DAILY BREATHING PROBLEMS (Reported) Triage Nurses Notes Reviewed? yes Onset: Gradual Duration: week(s): (1), constant Timing: recent history Severity: moderate Activities at Onset: none Prior Episodes/Possible Cause: chronic episodes Associated Symptoms: DENIES HPI: 57-year-old female active smoker history of COPD presents to the ER complaining of worsening shortness of breath 1 week. She states she went to the wellness clinic earlier this week and was given a shot of Solu-Medrol and a DuoNeb. She states she is feeling better however her symptoms got worse yesterday she called her primary but states they were closing could not get a prescription for prednisone which she is requesting today. She does report a cough productive of clear sputum. No fever however does report diaphoresis last night which she attributes to her air-conditioning. No chest pain abdominal pain nausea vomiting diarrhea. No leg swelling (Jacinto Hung) Past History Travel History Traveled to [place] past 21 day No Medical History Any Pertinent Medical History? see below for history Neurological: NONE EENT: NONE Cardiovascular: NONE Respiratory: COPD, emphysema Gastrointestinal: NONE Hepatic: NONE Renal: NONE Musculoskeletal: NONE Psychiatric: NONE Endocrine: NONE Blood Disorders: NONE Cancer(s): NONE AEROSPACE ENGINEER/Reproductive: NONE History of MRSA: No History of VRE: No History of CDIFF: No Surgical History Surgical History: appendectomy, tonsillectomy Psychosocial History Who do you live with Patient/Self Services at Home None What is your primary language Irish Family History Family History, If Any: MOTHER Family hx of lung cancer MOTHER FATHER FH: cirrhosis FH: myocardial infarction Relation not specified for: FH: hypertension Hx Contributory? No (Jacinto Hung) Review of Systems Review of Systems Constitutional: Reports: see HPI. Comments Review of systems: See HPI, All other systems negative. Constitutional, no chills no fever HEENT: no sore throat no congestion Cardiovascular: No chest pain , no palpitation Skin: no rashes, no change in skin Respiratory: dyspnea cough sputum no hemoptysis GI: No nausea no vomiting, no diarrhea : No dysuria Muscle skeletal: No joint pain, no back pain, no neck pain, Neurologic: , no headache Heme/endocrine: No bruising Immunology: No lymphadenopathy (Jacinto Hung) Physical Exam Physical Exam General Appearance: well developed/nourished, no apparent distress, alert, awake Respiratory: wheezing Comments: Well-developed well-nourished person in no acute distress HEENT: Normal EENT exam; PERRL, EOMI, HEAD is atraumatic. moist mucous membranes. Neck: Supple, normal range of motion Back: Full range of motion Cardiovascular: Regular rate and rhythms no murmurs rubs Respiratory: Chest nontender.There were no bony deformities, no asymmetry. No respiratory distress. Patient speaking in full complete sentences. Diminished breath sounds wheezing bilaterally Abdomen: Soft, nontender Extremity: No edema, full range of motion of extremities Neuro: Alert oriented x3, motor sensory normal, There were no obvious focal neurologic abnormalities. Skin: No appreciable rash on exposed skin, skin is warm and dry. Psych: Mood and affect is normal, memory and judgment is normal. Core Measures ACS in differential dx? Yes CVA/TIA Diagnosis No Sepsis Present: No Sepsis Focused Exam Completed? No (Jhon SHELBY,Jacinto) Progress Differential Diagnosis: asthma, AMI, bronchitis, CHF, COPD, pericarditis, pulmonary embolism, pneumonia, unstable angina Plan of Care: Orders Procedure Date/time Status TROPONIN LEVEL 10/27 909 Complete COMPREHENSIVE METABOLIC PANEL 10/27 09 Complete CBC WITHOUT DIFFERENTIAL 10/27 909 Complete B-TYPE NATRIURETIC PEP (BNP) 10/27 09 Complete EKG 10/27 09 Active Laboratory Tests 10/27/17 0948: Anion Gap 13, Estimated GFR > 60, BUN/Creatinine Ratio 21.7, Glucose 82, Calcium 10.0, Total Bilirubin 0.6, AST 30, ALT 45, Alkaline Phosphatase 58, Troponin I < 0.01, Giy-V-Qiocfmdufei Pept 231 H, Total Protein 7.8, Albumin 4.5, Globulin 3.3, Albumin/Globulin Ratio 1.4, CBC w Diff NO MAN DIFF REQ, RBC 5.36, MCV 92.8, MCH 30.6, MCHC 32.9 L, RDW 14.8 H, MPV 9.1, Gran % 74.7, Lymphocytes % 16.3 L , Monocytes % 7.3, Eosinophils % 1.1, Basophils % 0.6, Absolute Granulocytes 8.4 H, Absolute Lymphocytes 1.8, Absolute Monocytes 0.8 H, Absolute Eosinophils 0.1, Absolute Basophils 0.1 Patient medicated sign Medrol 125 IV DuoNeb times x-ray ordered. Patient states that she will not be admitted during my initial evaluation she states she just wants prednisone wants to go home after Solu-Medrol is done discussed with her plan she is in agreement at this time 1030 [place] is feeling significantly improved after treatment noted improvement in wheezing on auscultation pending labs x-ray Oni is feeling significantly improved and ambulatory around the ER with steady gait in no acute distress. I discussed with her plan of care she feels comfortable return precautions were discussed at the I offered to watch her for longer here in the emergency room which she is declining she feels improved we' ll send her home with a prednisone taper she'll follow-up with primary care next week return precautions discussed at length. Diagnostic Imaging: Viewed by Me: Radiology Read. Discussed w/RAD: Radiology Read. Radiology Impression: PATIENT: KENRICK LYN PRESENT AGE: 57 PATIENT ACCOUNT NO: [id number] : 58 LOCATION: [facility] ORDERING PHYSICIAN: Jacinto SHELBY SERVICE DATE: 10/27/17 EXAM TYPE: RAD - XRY- PORTABLE CHEST XRAY EXAMINATION: XR PORTABLE CHEST CLINICAL INFORMATION: Shortness of breath. History of COPD. COMPARISON: Most recent prior chest radiograph done on 04/27/2017 and baseline chest radiograph done on 06/25/2007. TECHNIQUE: Portable frontal view of the chest was obtained. FINDINGS: There is a persistent 1.6 cm well-circumscribed mass identified at left midlung field, shows interval increased by 0.2 cm since 06/25/2007. Given the long-term stability, consistent with benign pathology. Hyperinflation lungs is present bilaterally with evidence of emphysematous changes at both upper lobes. Mild blunting of the right lateral CP angle is noted, similar to prior study dated , consistent with hyperinflation. No superimposed focal airspace disease. The cardiomediastinal silhouette is within normal limits. The visualized upper abdomen is unremarkable. IMPRESSION: Features consistent with emphysematous disease predominantly involving both upper lobes with relatively stable 1.6 cm left lung mass. No radiographic evidence of any superimposed acute cardiopulmonary disease. DICTATED BY: Alexandrea Colvin MD DATE/TIME DICTATED:1032 PRODUCTION OPERATIONS ENGINEER:DORA DATE/TIME TRANSCRIBED:10/27/171032 CONFIDENTIAL, DO NOT COPY WITHOUT APPROPRIATE AUTHORIZATION. <Electronically signed in Other Vendor System> SIGNED BY: Alexandrea Colvin MD 10/27/17 1043 Initial ED EKG: NSR AT 90, LBBB, NO ACUTE CHAGNES Prior EKG: unchanged (Jacinto Hung) Departure Departure Time of Disposition: 1055 Disposition: HOME OR SELF CARE Condition: Stable Clinical Impression Primary Impression: COPD exacerbation Referrals: Bernadette SHELBY,Willow Jenkins (PCP/Family) Additional Instructions: Follow-up with your primary care physician on Sunday. Prednisone taper as discussed. Continue using your inhalers as discussed return anytime sooner however if your symptoms worsen or you have any other concerns. Departure Forms: Customer Survey General Discharge Information Prescriptions: Current Visit Scripts Prednisone 0 PO DAILY #20 TAB 4 tabs po day 1-3 3 tabs po day 4-5 2 tabs po day 6-7 1 tab po day 8-9 (Jacinto Hung) PA/BAG MAKER Co-Sign Statement Statement: ED Attending supervision documentation- [X] I saw and evaluated the patient. I have also reviewed all the pertinent lab results and diagnostic results. I agree with the findings and the plan of care as documented in the PA's/BAG MAKER's documentation. [] I have reviewed the ED Record and agree with the PA's/BAG MAKER's documentation. [] Additions or exceptions (if any) to the PAs/BAG MAKER's note and plan are summarized below: [] (Akira Schuster DO) Critical Care Note Critical Care Note Critical Care Time: non-applicable (Jacinto Hung) Critical Care Time: non-applicable (Jacinto Hung)
[2017-10-27 10:28] LABS: ABSOLUTE BASOPHIL COUNT 0.1 /CUMM (0.0-0.2); ABSOLUTE EOSINOPHIL COUNT 0.1 /CUMM (0.0-0.7); ABSOLUTE GRANULOCYTE CT 8.4 /CUMM (1.4-6.5); ABSOLUTE LYMPH COUNT 1.8 /CUMM (1.2-3.4); ABSOLUTE MONOCYTE COUNT 0.8 /CUMM (0.10-0.60); BASOPHIL % 0.6 % (0.0-2.0); EOSINOPHIL % 1.1 % (0-5); GRANULOCYTE % 74.7 % (42.2-75.2); HEMATOCRIT 49.8 % (37-47); MEAN CORPUSCULAR HGB 30.6 PG (27.0-31.0); MEAN CORPUSCULAR HGB CONC 32.9 G/DL (33.0-37.0); MEAN CORPUSCULAR VOLUME 92.8 FL (81.0-99.0); MEAN PLATELET VOLUME 9.1 FL (7.4-10.4); PLATELET COUNT 285 /CUMM (130-400); RBC DISTRIBUTION WIDTH 14.8 % (11.5-14.5); RED BLOOD CELL CT 5.36 /CUMM (4.20-5.40); WHITE BLOOD CELL COUNT 11.3 /CUMM (4.8-10.8)
--- NOTE | 2017-10-27 10:43 | RADIOLOGY REPORT ---
EXAMINATION: XR PORTABLE CHEST CLINICAL INFORMATION: Shortness of breath. History of COPD. COMPARISON: Most recent prior chest radiograph done on 04/27/2017 and baseline chest radiograph done on 06/25/2007. TECHNIQUE: Portable frontal view of the chest was obtained. FINDINGS: There is a persistent 1.6 cm well-circumscribed mass identified at left midlung field, shows interval increased by 0.2 cm since 06/25/2007. Given the long-term stability, consistent with benign pathology. Hyperinflation lungs is present bilaterally with evidence of emphysematous changes at both upper lobes. Mild blunting of the right lateral CP angle is noted, similar to prior study dated 04/27/2017, consistent with hyperinflation. No superimposed focal airspace disease. The cardiomediastinal silhouette is within normal limits. The visualized upper abdomen is unremarkable. IMPRESSION: Features consistent with emphysematous disease predominantly involving both upper lobes with relatively stable 1.6 cm left lung mass. No radiographic evidence of any superimposed acute cardiopulmonary disease.
[2017-10-27] MEDS ORDERED: PREDNISONE10 M2 PO (10:58)
[2017-10-27 11:00] VITALS: BP 110/70
== END 2017-10-27 11:17 ==
LOC: ERH 09:06
PROVIDERS: Physician Assistant Medical
DX: J44.1 Chronic obstructive pulmonary disease with (acute) exacerbation (principal); F17.210 Nicotine dependence, cigarettes, uncomplicated
CPT/HCPCS: 71045; 93005; 93010; 96374; J2930